=== PATIENT | female | born 1990 | race Caucasian/White ===

== ENCOUNTER 2019-06-05 16:37 | Emergency (ER) | payer BC, SELFPAY ==
[2019-06-05 17:04] VITALS: BP 103/60; PULSE 80; RESP 16; TEMP 36.6; O2SAT 96
--- NOTE | 2019-06-05 17:20 | ED.EYEPROB ---
HPI - Eye Problem General Chief complaint: Eye Problems Stated complaint: Possible [place] [facility] Right Time Seen by Provider: 06/05/19 17:20 Source: patient and family History of Present Illness HPI Narrative: Patient here with itching and drainage to right eye. Patient states her toddler just got over pinkeye and now she thinks she has in her right eye. No vision problems does not wear contacts no injury. Related Data Home Medications Medication Instructions Recorded Confirmed No Home Medications 06/05/19 06/05/19 Allergies Allergy/AdvReac Type Severity Reaction Status Date / Time No Known Allergies Allergy Verified 06/05/19 17:25 Review of Systems Review of Systems: Narrative: CONSTITUTIONAL: Denies fever, chills, or sweats. EYES: Denies visual changes, redness, or discharge. Right eye redness itching ENT: Denies rhinorrhea, congestion, sore throat, or otalgia. CARDIOVASCULAR: Denies chest pain, palpitations, or edema. RESPIRATORY: Denies cough or dyspnea. GASTROINTESTINAL: Denies abdominal pain, nausea, vomiting, or diarrhea. GENITOURINARY: Denies dysuria or hematuria. SKIN: Denies rash or itching. MUSCULOSKELETAL: Denies back pain, joint pain, or myalgia. NEUROLOGIC: Denies headache, numbness, or weakness. PSYCHIATRIC: Denies anxiety or depression. All systems reviewed & are unremarkable except as noted in HPI and below PMFSH Comments At time of signature, agree with nursing past medical, surgical, social and family history. There is no relevant family history pertinent to the presenting complaint Exam Narrative: Exam Narrative: GENERAL: Well-appearing, well-nourished, and in no acute distress. HEAD: Normocephalic, atraumatic. EYES: PERRLA and EOMI. ENT: Nares clear, no rhinorrhea or epistaxis. Mucous membranes moist. Method of inspection: Right eye, viewed pupil: Both eyes, 2 mm, equal, reactivity brisk to direct light, Conjunctiva: Right, with conjunctivitis, not pale, not with subconjunctival hemorrhage, upper and lower eyelids normal. CHEST: Clear to auscultation. No respiratory distress. HEART: Regular rate and rhythm. No murmur heard. Normal peripheral pulses. ABDOMEN: Soft, nontender, nondistended, normal active bowel sounds. EXTREMITIES: Normal range of motion. No edema. SKIN: Warm, dry, no rash. NEURO: No focal deficits. Alert and oriented x3. Sullivan Coma Scale Eye Opening: Spontaneous 4 Eleni Coma Scale Motor: Obeys Commands 6 Eleni Coma Scale Verbal: Oriented 5 Sullivan Coma Scale Total 15 Eyes: Conjunctivae: conjunctival abnormality right Pupils: Equal, round and reactive pupils present Other: Conjunctivitis right Neck: Neck: normal visual inspection Course Vital Signs Vital signs: Vital Signs Temperature 36.6 C 06/05/19 17:04 Pulse Rate 80 06/05/19 17:04 Respiratory Rate 16 06/05/19 17:04 Blood Pressure 103/60 06/05/19 17:04 Pulse Oximetry 96 06/05/19 17:04 Temperature 36.6 C 06/05/19 17:04 Pulse Rate 80 06/05/19 17:04 Respiratory Rate 16 06/05/19 17:04 Blood Pressure 103/60 06/05/19 17:04 Pulse Oximetry 96 06/05/19 17:04 MDM - Eye Problem Differential Diagnosis Differential diagnosis: Likely corneal abrasion, conjunctivitis and subconjunctival hemorrhage Critical Care Time Critical Care Time Critical Care Time: No Discharge Plan Discharge Clinical Impression: Bacterial conjunctivitis Patient Disposition: Home, Self-Care Condition: Stable Instructions: Antibiotic Form Additional Instructions: Conjunctivitis is spread by [id number] contact or by touching a contaminated surface. You can use artificial tears, cold and warm compresses-use, different compress for each eye, and increase hygiene such as hand-washing. Do not wear contacts for 1 week, if applicable. Do not return for 24 hours to daycare, school, workplace for 24 hours after first antibiotic dose. Change bedding. follow up with eye doctor in 24-48 hours -If y
== END 2019-06-05 17:27 | disposition home or self-care (01) ==
PROVIDERS: Emergency Provider Nurse Practitioner Family
DX: H10.9 Unspecified conjunctivitis (principal)
CPT/HCPCS: 99203; G0463

== ENCOUNTER 2022-02-15 14:13 | Emergency (ER) | payer BC, SELFPAY ==
[2022-02-15 14:30] VITALS: BP 106/66; PULSE 89; RESP 16; TEMP 36.8; O2SAT 100
--- NOTE | 2022-02-15 14:37 | ED.URI ---
HPI - URI/Sore Throat General Chief Complaint: Upper Respiratory Infection Stated Complaint: sore throat Time Seen by Provider: 02/15/22 14:37 History of Present Illness HPI Narrative: 32 y/o female presented for c/o sore throat for 3 days. Reports seeing white patches on tonsils today. Also endorses mild post nasal drainage, hoarse voice, mild cough and ear pressure bilaterally. States both daughters had strep throat about 10 days ago. Not taking anything for pain. Related Data Home Medications Medication Instructions Recorded Confirmed No Home Medications 06/05/19 06/05/19 Allergies Allergy/AdvReac Type Severity Reaction Status Date / Time No Known Allergies Allergy Verified 02/15/22 14:29 Review of Systems Review of Systems: CONSTITUTIONAL: Denies body aches, fever, chills, or sweats. EYES: Denies visual changes, redness, or discharge. ENT: per HPI CARDIOVASCULAR: Denies chest pain, palpitations, or edema. RESPIRATORY: Denies dyspnea. GASTROINTESTINAL: Denies abdominal pain, nausea, vomiting, or diarrhea. SKIN: Denies rash, itching, or wounds. MUSCULOSKELETAL: Denies back pain, joint pain, or myalgia. NEUROLOGIC: Denies headache Exam Narrative: GENERAL: well-appearing, no acute distress. EYES: conjunctivae clear ENT: Mucous membranes moist. TMs pearly kelley with normal light reflex bilaterally; no tragal tenderness. Oropharynx erythematous without lesions. Tonsils enlarged 2+ and without exudate. No drooling, no trismus, uvula midline. No tripod positioning, hot potato voice, or soft palate swelling. NECK: Supple. No lymphadenopathy CHEST: Clear to auscultation, breath sounds equal. HEART: Regular rate and rhythm. No murmur heard. SKIN: Warm, dry, no rash. NEURO: Alert and oriented x3. Course Course Emergency Course: Patient is aware of diagnosis, understands and agrees to treatment plan. Anticipatory guidance given. Patient agrees to follow-up as directed and is aware of reasons to seek care at the emergency department. Portions of this record may have been created with voice recognition software Level of Care: Express Care Visit Vital Signs Vital signs: Vital Signs Temperature 98.2 F 02/15/22 14:30 Pulse Rate 89 02/15/22 14:30 Respiratory Rate 16 02/15/22 14:30 Blood Pressure 106/66 02/15/22 14:30 Pulse Oximetry 100 02/15/22 14:30 Oxygen Delivery Room Air 02/15/22 14:30 Temperature 98.2 F 02/15/22 14:30 Pulse Rate 89 02/15/22 14:30 Respiratory Rate 16 02/15/22 14:30 Blood Pressure 106/66 02/15/22 14:30 Pulse Oximetry 100 02/15/22 14:30 Oxygen Delivery Room Air 02/15/22 14:30 MDM - URI/Sore Throat MDM Narrative Medical decision making narrative: Patient requested testing despite known exposure. Neg strep result reviewed with pt. Will culture. Advise supportive treatments. Patient is appropriate for outpatient treatment and follow-up. Differential Diagnosis Differential diagnosis: Likely upper respiratory infection, viral infection and pharyngitis Discharge Plan Discharge Clinical Impression: Pharyngitis, Exposure to group A Streptococcus Patient Disposition: Home, Self-Care Condition: Stable Instructions: Antibiotic Form, Strep Throat (ED) Additional Instructions: Rapid strep swab was negative today You will be notified in a few days if the culture comes back positive for strep, and appropriate antibiotics will be called in at that time. if symptoms are due to a viral illness, it is not treated with antibiotics. Viral symptoms can be present for up to 10-14 days. Tylenol every 8 hours as needed for pain/fever Soft foods, cool liquids, warm tea. Gargle with warm saltwater twice a day. Chloraseptic spray and throat lozenges. Rest and stay hydrated. --Follow up with your PCP if symptoms are not improving, or sooner if symptoms are worsening. Go to the ER immediately if you cannot swallow your saliva, tr
== END 2022-02-15 15:02 | disposition home or self-care (01) ==
PROVIDERS: Emergency Provider Nurse Practitioner Family; PCP Internal Medicine
DX: J02.9 Acute pharyngitis, unspecified (principal)
CPT/HCPCS: 87081; 87880; 99213; G0463

== ENCOUNTER 2023-05-24 14:41 | Emergency (ER) | payer BC, SELFPAY ==
[2023-05-24 14:53] VITALS: BP 143/74; PULSE 100; RESP 18; TEMP 36.6; O2SAT 100
--- NOTE | 2023-05-24 15:07 | ED.WOUNDLAC ---
HPI - Wound/Laceration General Chief Complaint: Wound/Laceration Stated Complaint: Lacetation to Finger Source: patient, RN notes reviewed and old records reviewed Mode of arrival: ambulatory Limitations: no limitations History of Present Illness HPI narrative: 33-year-old female presents to [facility] with complaints of laceration to right 2nd finger. Patient states cut on the insulin last p.m.. Patient states here because she can not get it to quit bleeding. Patient's tetanus up-to-date Related Data Home Medications Medication Instructions Recorded Confirmed No Home Medications 06/05/19 05/24/23 Allergies Allergy/AdvReac Type Severity Reaction Status Date / Time No Known Allergies Allergy Verified 02/15/22 14:29 Review of Systems Constitutional: Constitutional: Reports no additional constitutional complaints, Denies body ache(s), Denies chills, Denies fatigue, Denies fever(s) and Denies headache(s) Eyes: Eyes: Reports no additional eye complaints and Denies blurry vision ENT: Reports system reviewed and no additional complaints, except as documented, Denies vertigo, Denies dizziness, Denies ear discharge, Denies otalgia, Denies facial pain, Denies headache(s), Denies nasal congestion, Denies nasal discharge, Denies sinus pain, Denies sinus pressure and Denies sore throat Cardiovascular: Cardiovascular: Reports no additional cardiovascular complaints, Denies chest pain, Denies chest pain at rest, Denies rapid heart rate and Denies dyspnea Respiratory: Respiratory: Reports no additional respiratory complaints, Denies chest congestion, Denies cough, Denies pain on inspiration, Denies pain with cough and Denies dyspnea Gastrointestinal: Gastrointestinal: Denies abdominal pain, Denies diarrhea, Denies nausea and Denies vomiting Integumentary/Breasts: Skin/Breast: Denies rash Comments: laceration right 2nd finger Neurologic: Reports system reviewed and no additional complaints, except as documented, Denies vertigo, Denies dizziness and Denies headache(s) Endocrine: Endocrine: Denies fatigue PMFSH Comments At the time of my signature, I reviewed and agree with the nursing past medical, surgical, social, and family history. There is no relevant family history pertinent to the patient complaint. Exam Const: General: cooperative, healthy appearing, no acute distress and well nourished Nutritional Appearance: well nourished Orientation/consciousness: patient oriented x3 Limitations: no limitations HENMT: Head: normal to inspection and normocephalic Ears: external ears normal, TM's normal bilaterally, mastoids normal and Abnormal EAC present Face/Nose/Sinus: normal facial exam Face and sinus: normal facial exam Mouth: Yes Normal oral and palatal mucosa present, Yes oropharynx normal and Yes moist mucous membranes Throat: tonsils normal, uvula midline and no uvular edema Eyes: General: appearance normal, both eyes and all related structures Sclera: sclerae normal Pupils: Equal, round and reactive pupils present Resp: Effort & Inspection: normal respiratory effort, able to speak in complete sentences, no audible wheezes, no cough, no respiratory distress and no retractions Skin: General skin exam: normal color and no rashes or lesions noted Wounds: wounds noted ( 1 cm avulsion to tip of right 2nd finger slight bleeding noted) Neuro: General: patient oriented x3 Cranial nerves: Yes Equal, round and reactive pupils present Psych: Appearance: grossly normal Mental Status: mental status grossly normal Speech and movement: Normal speech and movement present Affect: normal affect Course Course Emergency Course: Patient is aware of diagnosis, understands and agrees to treatment plan.? Anticipatory guidance given.? Patient agrees to follow-up as directed and is aware of reasons to seek care at the emergency department. Some parts of this dictation were generated by voice recognition software and nikole fanai
== END 2023-05-24 15:12 | disposition home or self-care (01) ==
PROVIDERS: Emergency Provider Registered Nurse; PCP Emergency Medicine
DX: S61.200A Unspecified open wound of right index finger without damage to nail, initial encounter (principal); W45.8XXA Other foreign body or object entering through skin, initial encounter
CPT/HCPCS: 99212; G0463

== ENCOUNTER 2024-08-01 12:53 | Emergency (ER) | payer BC, SELFPAY ==
--- OUTSIDE RECORDS SUMMARY | 2024-08-01 12:56 | XMS_ITS | Clinical Summary ---
Author Organization [facility] Address [address] [place] [address] Care Team Providers Care President [employer] Name Role Phone Andrew Huang MD Primary Care Provi penny Source Comments [facility],non-owned Affiliates and Associated Physician Practices is amultiple site organization consisting of ambulatory clinics and hospital sitesin [place], [place], [place] and [place]. This disclosure is being madepursuant to the Care Everywhere program and may not contain all information available regarding this patient. Last updated [facility] Allergies No known active allergies Medications * Be aware that medications may not be up to date on this document. Alwaysverify current medications with the patient. No known medications Social History Tobacco Use Types Packs/Day Years Used Date Smoking Tobacco: Never Smokeless Tobacco: Never Tobacco Cessation:Counseling Given: Yes Comments No Sex and Gender Information Value Date Recorded Sex Assigned at Not on file Legal Sex Female 10:02 AM CDT Gender Identity Not on file Sexual Orientation Not on file Last Filed Vital Signs Vital Sign Reading Time Taken Comments Blood Pressure 114/68 08/07/2018 11:27 AM CDT Pulse 96 08/07/2018 11:27 AM CDT Temperature 36.5 C (97.7 F) 08/07/2018 11:27 AM CDT Respiratory Rate 16 08/07/2018 11:27 AM CDT Oxygen Saturation 96% 08/07/2018 11:27 AM CDT Inhaled Oxygen Concentration - - Weight 72.6 kg (160 lb) 08/07/2018 11:27 AM CDT Height 172.7 cm (5' 8 ) 08/07/2018 11:27 AM CDT Body Mass Index 24.33 08/07/2018 11:27 AM CDT Plan of Treatment Health Maintenance Due Date Last Done Comments HIV SCREENING 01/21/2003 HEPATITIS C SCREENING 01/17/2006 DTAP/TDAP/TD VACCINES (1 - Tdap) 01/21/2007 HEPATITIS B VACCINE (1 of 3 - 19+ 3-dose series) 01/21/2007 COVID-19 VACCINE (1 - 2023-2 5 season) 2023 DEPRESSION SCREENING 04/07/2024 INFLUENZA VACCINE (Season Ended) 2024 01/31/20 18 ZOSTER VACCINE (1 of 2) 01/21/2038 HIB VACCINE Aged Out No longer eligi ble based on patient's age to complete this topic HPV VACCINE Aged Out No longer eligi ble based on patient's age to complete this topic MENINGOCOCCAL (Group B) VACC INE SHARED DECISION-MAKING Aged Out No longer eligibl e based on patient's age to complete this topic MENINGOCOCCAL GROUPS A/C/Y/W VACCINE Aged Out No longer eligible b ased on patient's age to complete this topic PNEUMOCOCCAL VACCINE Aged Out No long er eligible based on patient's age to complete this topic Insurance ANTHEM Care Teams President [employer] Relationship Specialty Start Date End Date Andrew Huang MD PCP - General Internal Medicine 08/07/18
--- OUTSIDE RECORDS SUMMARY | 2024-08-01 12:56 | XMS_ITS | Encounter Summary ---
Author Organization [facility] Address [address] [place] [address] Care Team Providers Care Radio Time Buyer Name Role Phone Susie Padilla MD Primary Care Provid er Encounter Details Date Type Department Care Team (Latest Contact Info) Description 08/01/2008 Outpatient Historical HIS CARDIOPULMONARY Elmer Morgan MD NO ADDRESS ON FILE Dizziness and Giddiness Social History Tobacco Use Types Packs/Day Years Used Date Smoking Tobacco: Never Assessed Comments No Sex and Gender Information Value Date Recorded Sex Assigned at Not on file Legal Sex Female 5:42 AM PATIENT PARTNER Gender Identity Not on file Sexual Orientation Not on file documented as of this encounter Plan of Treatment Not on file documented as of this encounter Visit Diagnoses Diagnosis Dizziness and giddiness documented in this encounter Care Teams Radio Time Buyer Relationship Specialty Start Date End Date Susie Padilla MD PCP - General Internal Medicine 11/15/14 05/26/18 documented as of this encounter
--- OUTSIDE RECORDS SUMMARY | 2024-08-01 12:56 | XMS_ITS | Referral Summary ---
Author Organization [facility] Building A Address [address] [place] [address] Care Team Providers Care Warehouse Laborer Name Role Phone Sharifa Duran MD Unavailable Andrez Restrepo Primary Care Provider Allergies No known active allergies Medications PNV no.95/ferrous fum/folic ac ( MULTIVITAMINS ORAL) 1 tablet(s), Oral, qhs, 30 tablet(s), Tablet(s), 0 06/30/2017 Active loratadine (CLARITIN) 10 mg tablet Take 10 mg by mouth daily Active Active Problems Problem Noted Date Diagnosed Date History of delivery 05/15/2022 Reactive hypoglycemia 12/16/2019 Assessment & Plan (12/16/2019 3:35 PM CDT): Aware of and treats with juice and Pointed out that it is meant to look as to what caused it. BMI 30.0-30.9,adult 12/16/2019 Assessment & Plan (12/16/2019 3:36 PM CDT): Recognizes 30 lbs to lose and feels with dol. Fibromyalgia 08/21/2013 Overview (12/30/2018): Fibromyalgia Assessment & Plan (12/16/2019 3:36 PM CDT): Not enough Need to treat an dfinds workouts help the most Assessment & Plan (11/02/2018 10:00 AM CDT): Working out. smiwwing exp good to help occasional tyleono andwhen not preg advil on and off rarely. Resolved Problems Problem Noted Date Diagnosed Date Resolved Date Request for sterilization 04/25/2022 Supervision of normal 12/19/2021 07/03/2022 Herpes zoster without complication 04/26/2019 12/16/2019 Assessment & Plan (04/26/2019 12:05 PM MECHANIST): r buttock buttock isolated patch 15 lesion shinglesin one of two areas that are not spreading to the rest of bodoy c=toaled with park worker supervisor/ob and treats with valtrex all time and leans to treating as opposed to not valtrex 100 tid for 7 sdays. Keep covered and fluid the source of viral tranamission. Hand washing and see' park worker supervisor/ob next week and can followup with her Hangnail, right 04/26/2019 05/19/2019 Assessment & Plan (04/26/2019 12:08 PM MECHANIST): Min and toical antibiotic creatm with cotton to hold to area Encounter for ultrasound to assess anatomy and growth in twin , antepartum 01/29/2019 01/29/2019 Screening, , for fe serene anatomic survey 01/29/2019 05/19/2019 PE (physical exam), annual 01/29/2019 0 11/21/2021 Assessment & Plan (12/16/2019 3:40 PM CDT): Well exam healthy female ask for Piror screening labs to add to chart see's park worker supervisor and Keep up with . No preg problems. No shgar or bp. Get old labs for screen and get ua on return in feb P.e. fall flu shot. Supervision of other normal , antepartum 12/30/2018 06/10/2019 BMI 24.0-24.9, adult 11/02/2018 020 Assessment & Plan (11/02/2018 10:01 AM CDT): Work to keep wt stable Vasovagal syncope 06/30/2008 12/30/2018 Immunizations Immunization Administration Dates Next Due Influenza, Unspecified 05/02/2021(Deferr ed: Patient Refused),12/16/2019(Deferred: Patient Refused),03/21/2019,01/30/2018 Tdap 04/04/2022,03/24/2019 Social History Tobacco Use Types Packs/Day Years Used Date Smoking Tobacco: Never Smokeless Tobacco: Never Tobacco Cessation:Counseling Given: Not Answered Alcohol Use Standard Drinks/Week Comments Yes 2 (1 standard drink = 0.6 oz pur e alcohol) Occasional PHQ-2 Answer Date Recorded PHQ-2 Total Score (If total score is 3 or more points, staff should administer the PHQ-9) 0 06/27/2021 [facility] - Occupational Stress Questionnaire Answer Date Recorded Do you feel stress - tense, restless, nervous, or anxious, or unable to sleep at night because your mind is troubled all the time - these days? Not at all 12/16/2019 Exercise Vital Sign Answer Date Recorde d On average, how many days pe r week do you engage in moderate to strenuous exercise (like a brisk walk)? 0 days 12/16/2019 On average, how many minutes do you engage in exercise at this level? 0 min 12/16/2019 [place] Depression Scale Answer Date Recorded [place] Depression Scale Total 1 06/26/2022 The thought of harming myself has occurred to me . 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 Not on file Not on fi le Not on file Last Filed Vital Signs Vital Sign Reading Time Taken Comments Blood Pressure 110/78 07/03/2022 9:13 AM CDT Pulse 99 06/18/2021 3:52 PM CDT Temperature 36.8 C (98.2 F) 06/18/2021 3:52 PM CDT Respiratory Rate 18 06/18/2021 3:52 PM CDT Oxygen Saturation 96% 06/18/2021 3:52 PM CDT Inhaled Oxygen Concentration - - Weight 90.3 kg (199 lb) 07/03/2022 9:13 AM CDT Height 172.7 cm (5' 8 ) 07/03/2022 9:13 AM CDT Body Mass Index 30.26 07/03/2022 9:13 AM CDT Plan of Treatment Not on file Procedures Procedure Name Priority Date/Time Associated Diagnosis Comments HEPATITIS C ANTIBODY Routine 12/19/2021 3:13 PM CDT Encounter for supervision of other normal in second trimester PAP AND HIGH RISK HPV, REFLEX TO GENOTYPING Routine 05/03/2020 10:29 AM MECHANIST Well woman exam Routine Papanicolaou smear Screening for human papillomavirus (HPV) from Last 3 Months or Most Recently Relevant to Health Maintenance Results * Hepatitis C antibody (12/19/2021 3:13 PM CDT) Hep C Ab Nonreactive Nonreactive KARLIE WOOTEN Comment: Interpretive Data Nonreactive: Antibodies to HCV not detected. Does NOT exclude the possibility of recent exposure to HCV. Equivocal: Equivocal for HCV antibodies. Supplemental molecular testing will be automatically performed to determine infection status in accordance with current CDC screening recommendations. Reactive: Positive for HCV antibodies. This may represent current or past HCV infection. Supplemental molecular testing will be automatically performed to determine current infection status in accordance with current CDC screening recommendations. Interpretive data was last revised on 2019. Blood 12/19/2021 3:13 PM CDT 12/19/2021 3:13 PM CDT us Sharifa Duran MD LAB MICROBIOL OGY - GENERAL ORDERABLES Edited Result - Final KARLIE [facility] [address] [place] [address] * Pap and High Risk HPV, reflex to Genotyping (05/03/2020 10:29 AM MECHANIST) Swab 05/03/2020 10:2 9 AM MECHANIST 05/04/2020 2:28 PM MECHANIST Narrative PATHOLOGY [facility] - 05/09/2020 3:43 PM MECHANIST [facility] results best viewed via link to PDF [id number] [place] [employer], [place] [address] Tele: Marga Valentine MD - Agricultural Equipment Operator CYTOLOGY REPORT Patient Name: GWENDOLYN REYES Address: [address] [id number] Gender: F : 1990 (Age: 30) Service: Laboratory Location: Lab Hospital #: [id number] Patient Type: [facility] Lab Taken: 05/03/2020 Reported: 05/09/2020 Physician(s): Sharifa Duran M.D. FINAL DIAGNOSIS: Specimen Type: - ThinPrep Pap and HPV w/ reflex Genotyping Statement of Specimen Adequacy: Source: Cervical/Endocervical - Satisfactory for interpretation - Endocervical /Transformation Zone component present - Case screened using computer assisted imaging technology General Categorization: - Negative for intraepithelial lesion or malignancy Interpretation: - Acute Inflammation alld/05/09/2020 15:43 Odalis Haider Report Reviewed and Electronically Signed By Odalis Haider Clerical Data Follow A; [id number] DIAGNOSIS COMMENT: HPV High Risk Group (16, 18, 31, 33, 35, 39, 45, 51, 52, 56, 58, 59, 66 and 68) - Not Detected Reference Range: Not Detected This test was performed using the EDMUND 4800 CLINICAL DIAGNOSIS AND HISTORY Last Menstrual Period: 04/19/20 REPORT IMAGES AND/OR SCANNED DOCUMENTS ONLY VIEWABLE IN PDF FORMAT The Pap test is a screening test used to aid in the detection of cervical cancer and its precursors. It should not be the sole means by which malignant and premalignant lesions are diagnosed. Both false negative and false positive results may occur. It also has poor sensitivity for the detection of endometrial lesions and should not be used to evaluate suspected endometrial abnormalities. For these reasons it is most important to obtain Pap tests at regular intervals, as recommended by your physician or nurse practitioner. Sharifa Duran MD LAB CYTOLOGY ORDERABL ES Final Result PATHOLOGY [facility] Laboratory Receiving [address] [place] [address] from Last 3 Months or Most Recently Relevant to Health Maintenance Insurance [employer] ACCESS CHOICE ANTHEM ACCESS CHOICE ANTHEM ACCESS CHOICE [facility] Address: [place] [address] Advance Directives For more information, please contact: [phone] * Full Code (Latest Code Status on File) Date Activated Date Inactivated Comments 05/24/2019 11:31 PM 05/28/2019 3:46 PM * Full Code Date Activated Date Inactivated Comments 05/24/2019 1:56 PM 05/24/2019 11:31 PM Full CPR in case of cardiopulmonary arrest * Full Code Date Activated Date Inactivated Comments 05/19/2019 5:58 PM 05/23/2019 2:30 PM Full CPR in case of cardiopulmonary arrest Care Teams Warehouse Laborer Relationship Specialty Start Date End Date Andrez Restrepo PA [address] [place] [id number] PCP - General Internal Medicine 12/06/21 Sharifa Duran MD [address] [facility] [address], [place] [address] Consulting Physician Obstetrics and Gynecology 05/25/19
--- OUTSIDE RECORDS SUMMARY | 2024-08-01 12:56 | XMS_ITS | Encounter Summary ---
Author Organization [facility] Address [address] [place] [address] Care Team Providers Care Bench Assembler Electrical Name Role Phone Susie Padilla MD Primary Care Provid er Encounter Details Date Type Department Care Team (Latest Contact Info) Description 06/30/2008 Outpatient Historical [facility]ARDI[facility]ULMONARY Elmer Morgan MD NO ADDRESS ON FILE Dizziness and Giddiness Social History Tobacco Use Types Packs/Day Years Used Date Smoking Tobacco: Never Assessed Comments No Sex and Gender Information Value Date Recorded Sex Assigned at Not on file Legal Sex Female 5:42 AM POLICE LIAISON Gender Identity Not on file Sexual Orientation Not on file documented as of this encounter Plan of Treatment Not on file documented as of this encounter Visit Diagnoses Diagnosis Dizziness and giddiness documented in this encounter Care Teams Bench Assembler Electrical Relationship Specialty Start Date End Date Susie Padilla MD PCP - General Internal Medicine 11/15/14 05/26/18 documented as of this encounter
--- OUTSIDE RECORDS SUMMARY | 2024-08-01 12:56 | XMS_ITS | Clinical Summary ---
Author Organization [facility] Address [address] [place] [address] Phone Care Team Providers Care Sap Abap Programmer Name Role Phone Unavailable Primary Care Provider Unavailabl e Allergies No known active allergies Medications hydrocortisone (CORTAID) 1 % CreamIndication s:Rash Apply to affected area 2 times daily. 30 Gram 11/05/2016 Active Active Problems Problem Noted Date Diagnosed Date Rash 11/05/2016 Dysuria 04/16/2016 Fibromyalgia 11/15/2014 Vasovagal syncope 06/30/2008 Family History Medical History Relation Name Comments Unknown Father Hypertension Maternal Grandfather Stroke Maternal Grandfather Thyroid Disease Maternal Grandfather goit er Hypertension Maternal Grandmother Seizures Maternal Grandmother Unknown Mother Diabetes Other MGaunt Breast Cancer Neg Hx Colon Cancer Neg Hx Relation Name Status Comments Father Maternal Grandfather Maternal Grandmother Mother Other Other MGaunt Alive Social History Tobacco Use Types Packs/Day Years Used Date Smoking Tobacco: Never Smokeless Tobacco: Never Alcohol Use Standard Drinks/Week Comments Yes 1 (1 standard drink = 0.6 oz pur e alcohol) weekly Comments No Sex and Gender Information Value Date Recorded Sex Assigned at Not on file Legal Sex Female 5:42 AM PHOTO MACHINE OPERATOR Gender Identity Not on file Sexual Orientation Not on file Last Filed Vital Signs Vital Sign Reading Time Taken Comments Blood Pressure 110/62 09/17/2016 8:55 AM CDT Pulse 68 09/17/2016 8:55 AM CDT Temperature 36.8 C (98.3 F) 09/17/2016 8:55 AM CDT Respiratory Rate 16 06/30/2008 12:24 PM CDT Oxygen Saturation 99% 09/17/2016 8:55 AM CDT Inhaled Oxygen Concentration - - Weight 65.8 kg (145 lb) 09/17/2016 8:55 AM CDT Height 172.7 cm (5' 8 ) 09/17/2016 8:55 AM CDT Body Mass Index 22.05 09/17/2016 8:55 AM CDT Plan of Treatment Health Maintenance Due Date Last Done Comments DTAP/TDAP/TD VACCINES (1 - Tdap) 01/21/2007 HEPATITIS B VACCINES (1 of 3 - 19+ 3-dose series) 01/21/2007 HPV/Cotest (21-29) 01/21/2009 CERVICAL CANCER SCREENING 01/21/2018 HPV/Cotest (30-65) 01/21/2018 PAP SMEAR 01/21/2018 INFLUENZA VACCINE (#1) 2023 HPV VACCINES Aged Out No longer eligi ble based on patient's age to complete this topic Insurance [employer] PPO [id number]
--- OUTSIDE RECORDS SUMMARY | 2024-08-01 12:56 | XMS_ITS | Continuity of Care Document ---
Author Organization [facility] Address [address] [place] [address] [place] [address] Phone Care Team Providers Care Applications Architect Name Role Phone Yonis Landers MD Unavailable Unavailable Allergies, Adverse Reactions, Alerts Substance Reaction Status Criticality No Known Allergies Active No Inform ation Procedures Procedure Date PREV VISIT, EST, AGE 18-39 PREV VISIT, NEW, AGE 18-39 OFFICE/OUTPATIENT VISIT, [facility] Advance Directives Directive Yes / No Effective Date File Name No Information Encounters Encounter Description Practice Location Reason(s) For Visit Diagnoses Date Provider Providers Copied on Encounter PREV VISIT, EST, AGE 18-39 [facility], [place], [address] [place], [id number], [place] tel:[phone] [facility], [place] physical (chief complaint) Encounter for general adult medical examination without abnormal findings [address] Anshul Somers. [address] [place], [place], [id number] , [place]. tel:[phone] PREV VISIT, NEW, AGE 18-39 [facility], [place], [address], [place], [place], [id number], [place] tel:[phone] [facility], [place] physical (chief complaint) Encounter for general adult medical exam w abnormal findingsFibromyalgi a 3 Anshul Somers. [address], [place], [place], [id number] , [place]. tel:[phone] Family History Family Member Type Diagnosis Age At Onset Mother Problem unknown Maternal grandfather Problem High cholesterol Maternal grandmother Problem High cholesterol Maternal grandfather Problem Hypertension Maternal grandmother Problem Hypertension Father Problem unknown Payers Payer name Insurance type Covered constitution party ID Authorsuzi prabhakar(s) No Information Social History Type Description Quantity Date Captured Comments Alcohol Use Details No Caffeine Use Details Unknown Tobacco Use Status Current non-smoker Smoking Status Never smoker Sex Female Vital Signs Date / Time: Height Weight BMI Pulse Rate Blood Pressure Temperature Respiratory Rate Body Surface Area Head Circumference BMI percentile Pulse Ox Inhaled Ox 9:52 AM 68.00 in 201.80 lbs 30.6 8 kg/m eter (2) 76 /min 105/65 mm[Hg] 97.3 F 16 /min Chief Complaint And Reason For Visit From encounter dated '10/01/2023 09:43'. physical (chief complaint). Description: Pt needs annual physical pt has history of mild fibromyalgia but her symptoms are not bad and she takes OTC meds occasionally. Pt has some occasional leg and arm and upper back spasm and pain Pt denies any paresthesia Pt had thorough work up for above in thepast and was told that she has fibromyalgia, Pt denies any flare up of symptoms Pt denies any jointpain Pt denies any anxiety or depression. Pt overall feels better. Pt denies any other complaints. Plan Of Treatment Date Type Action Status No Information History Of Present Illness Encounter Date Complaint History Of Prese nt Illness physical Pt needs annual physical pt has history of mild fibromyalgia but her symptoms are not bad and she takes OTC meds occasionally. Pt has some occasional leg and arm and upper back spasm and pain Pt denies any paresthesia Pt had thorough work up for above in the past and was told that she has fibromyalgia, Pt denies any flare up of symptoms Pt denies any joint pain Pt denies any anxiety or depression. Pt overall feels better. Pt denies any other complaints. physical Pt needs annual physical pt has history of mild fibromyalgia but her symptoms are not bad and she takes OTC meds occasionally. Pt has some occasional leg and arm and upper back spasm and pain Pt denies any paresthesia Pt had thorough work up for above in the past and was told that she has fibromyalgia, Pt denies any flare up of symptoms Pt denies any joint pain Pt denies any anxiety or depression. Pt overall feels better. Pt denies any other complaints. Instructions Date Instruction Additional Infor larry No Information Assessments Type Assessment Date assessment Encounter for genera l adult medical examination without abnormal findings Mental Status Date Cognitive Assessment Orientation - Gill ed to time, place, person, situation.
--- OUTSIDE RECORDS SUMMARY | 2024-08-01 12:56 | XMS_ITS | Clinical Summary ---
Author Organization [facility] A Address [address] [place] [address] Care Team Providers Care Joint Creaser Name Role Phone Sharifa Duran MD Unavailable [...] 12/16/2019 Assessment & Plan (04/26/2019 12:05 PM DIRECTOR OF PROVIDER RELATIONS): r buttock buttock isolated patch 15 lesion shinglesin one of two areas that are not spreading to the rest of bodoy c=toaled with emergency dispatcher/ob and treats with valtrex all time and leans to treating as opposed to not valtrex 100 tid for 7 sdays. Keep covered and fluid the source of viral tranamission. Hand washing and see' emergency dispatcher/ob next week and can followup with her Hangnail, right 04/26/2019 05/19/2019 Assessment & Plan (04/26/2019 12:08 PM DIRECTOR OF PROVIDER RELATIONS): Min and toical antibiotic creatm with cotton to hold to area Encounter for ultrasound to assess anatomy and growth in twin , antepartum 01/29/2019 01/29/2019 Screening, , for fe serene anatomic survey 01/29/2019 05/19/2019 PE (physical exam), annual 01/29/2019 0 11/21/2021 Assessment & Plan (12/16/2019 3:40 PM CDT): Well exam healthy female ask for Piror screening labs to add to chart see's emergency dispatcher and Keep up with . No preg [...] ed: Patient Refused),12/16/2019(Deferred: Patient Refused),03/21/2019,01/30/2018 Tdap 04/04/2022,03/24/2019 Surgical History Surgery Date Site/Laterality Comments WISDOM TOOTH EXTRACTION 04/07/1997 - 04/06/1998 SECTION 05/24/2019 REPEAT SECTION 05/31/2022 with bilateral salpingectomy Medical History Medical History Date Comments Vasovagal syncope 06/30/2008 Family History Medical History Relation Name Comments No Known Problems Father Hypertension Maternal Grandfather Guillermo Stroke Maternal Grandfather Guillermo No Known Problems Mother Breast cancer Neg Hx Cervical cancer Neg Hx Colon cancer Neg Hx Ovarian cancer Neg Hx Uterine cancer Neg Hx Relation Name Status Comments Father Alive Maternal Grandfather Guillermo Mother Alive Social History Tobacco Use Types Packs/Day Years Used Date Smoking Tobacco: Never Smokeless Tobacco: Never Tobacco Cessation:Counseling Given: Not Answered Alcohol Use Standard Drinks/Week Comments Yes 2 (1 standard drink = 0.6 oz pur e alcohol) Occasional PHQ-2 Answer Date Recorded PHQ-2 Total Score (If total score is 3 or more points, staff should administer the PHQ-9) 0 06/27/2021 [facility] - Occupational Stress [...] exercise at this level? 0 min 12/16/2019 [place] Depression Scale Answer Date Recorded [place] Depression Scale Total 1 06/26/2022 The thought of harming myself has occurred to me . 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 file Not on fi le Not on file Obstetrics History Para Term AB IAB SAB Ectopic Multiple Livin g Live Births 3 3 2 1 0 3 3 Date Outcome GA Total Labor Labor/2nd/3rd Weight Sex Type Anes PTL Masha A1 A5 Name Clin 2017 Term 40w 2d 3.685 kg (8 lb 2 oz) F Vag-V acuum Epidur al Livin g Complications:Broken clavicl e 2019 35w 6d 0h 01m 0h 01m 2.41 kg (5 lb 5 oz) F CS-LT ranv Spinal N Livin g 8 9 GONZALO WOLFE ATE [place] tavarez, Sharifa serrato MD Complications:Abruptio Place nta Delivery Location:This [facility] ([facility] PROCEDURE) Comments:Abruption 2022 Term 38w 2d F C-Sec tion Livin g [place] her Delivery Location:Other Last Filed Vital Signs Vital Sign Reading [...] 07/03/2022 9:13 AM CDT Plan of Treatment Health Maintenance Due Date Last Done Comments Varicella Vaccines (1 of 2 - 13+ 2-dose series) 01/21/2001 Hepatitis B Screening 01/21/2006 Cervical Cancer Screening 05/03/2021 05/03/2020, 04/2016 Regular Well Visit/Exam 18-64 06/27/2022 06/27/2021, 05/02/2021, 05/03/2020, Additional history exists Depression Screening 06/27/2023 06/26/2022, 06/27/2021, 05/02/2021, Additional history exists Influenza Vaccine (Season Ended) 2024 03/21/2019, 01/30/2018 DTaP/Tdap/Td Vaccine (3 - Td or Tdap) 04/04/2032 04/04/2022, 03/24/2019 Hepatitis C Screening Completed 12/19/2021 HPV Vaccines Aged Out No longer eligi ble based on patient's age to complete this topic Pneumococcal vaccine <65 Aged Out No longer eligible based on patient's age to complete this topic Procedures Procedure Name Priority Date/Time Associated Diagnosis Comments HEPATITIS C ANTIBODY Routine 12/19/2021 3:13 PM CDT Encounter for supervision of other normal in second trimester PAP AND HIGH RISK HPV, REFLEX TO GENOTYPING Routine 05/03/2020 10:29 AM DIRECTOR OF PROVIDER RELATIONS Well woman exam Routine Papanicolaou smear Screening for human papillomavirus (HPV) from Last 3 Months or Most Recently Relevant to Health Maintenance Results * Hepatitis C antibody (12/19/2021 3:13 PM CDT) Hep C Ab Nonreactive Nonreactive KARLIE [facility] Comment: Interpretive Data Nonreactive: Antibodies to HCV [...] 3:13 PM CDT 12/19/2021 3:13 PM CDT Sharifa Duran MD LAB MICROBIOL OGY - GENERAL ORDERABLES Edited Result - Final [facility] [address] Department of [employer] [place], [place] [id number] * Pap and High Risk HPV, reflex to Genotyping (05/03/2020 10:29 AM DIRECTOR OF PROVIDER RELATIONS) Swab 05/03/2020 10:2 9 AM DIRECTOR OF PROVIDER RELATIONS 05/04/2020 2:28 PM DIRECTOR OF PROVIDER RELATIONS Narrative PATHOLOGY [facility] - 05/09/2020 3:43 PM DIRECTOR OF PROVIDER RELATIONS EPIC results best viewed via link to PDF [address] [address] Tele: Marga Valentine MD - Rotary Drum Dyer CYTOLOGY REPORT Patient Name: AMBER REYES Address: [address] [place] [address] Gender: F : 1990 (Age: 30) Service: Laboratory Location: Lab Hospital #: [id number] Patient Type: [facility] Lab Taken: 05/03/2020 Reported: 05/09/2020 Physician(s): Sharifa [...] LAB CYTOLOGY ORDERABL ES Final Result PATHOLOGY [facility] Laboratory Receiving [address] [place] [address] from Last 3 Months or Most Recently Relevant to Health Maintenance Insurance [employer] ANTH ACCESS CHOICE Advance Directives For more information, please contact: [phone] * Full Code (Latest Code Status on File) Date Activated Date Inactivated Comments 05/24/2019 11:31 PM 05/28/2019 3:46 PM * Full Code Date Activated Date Inactivated Comments 05/24/2019 1:56 PM 05/24/2019 11:31 PM Full CPR in case of cardiopulmonary arrest * Full Code Date Activated Date Inactivated Comments 05/19/2019 5:58 PM 05/23/2019 2:30 PM Full CPR in case of cardiopulmonary arrest Care Teams Joint Creaser Relationship Specialty Start Date End Date Andrez Restrepo PA [address] [place] [id number] PCP - General Internal Medicine 12/06/21 Sharifa Duran MD [address] [place] [address] Consulting Physician Obstetrics and Gynecology 05/25/19
--- OUTSIDE RECORDS SUMMARY | 2024-08-01 12:57 | XMS_ITS | Continuity of Care Document ---
Author Organization [facility] Address [address] [place] [address] [place] [address] Phone Care Team Providers Care Campus Director Name Role Phone Yonis Landers MD Unavailable Unavailable Allergies, Adverse Reactions, Alerts Substance Reaction Status Criticality No Known Allergies Active No Inform ation Procedures Procedure Date PREV VISIT, EST, AGE 18-39 PREV VISIT, NEW, AGE 18-39 OFFICE/OUTPATIENT VISIT, [facility] Advance Directives Directive Yes / No Effective Date File Name No Information Encounters Encounter Description Practice Location Reason(s) For Visit Diagnoses Date Provider Providers Copied on Encounter PREV VISIT, EST, AGE 18-39 [facility], [place], [address] [place], [id number], [place] tel:[phone] [facility] [place] physical (chief complaint) Encounter for general adult medical examination without abnormal findings 4 [address] Somers. [address], [place], [id number] , [place]. tel:[phone] PREV VISIT, NEW, AGE 18-39 [facility], [place], [address], [place], [place], [address], [place] tel:[phone] [facility], [place] physical (chief complaint) Encounter for general adult medical exam w abnormal findingsFibromyalgi a [address]. [address], [address], [place], [place], [address] , [place]. tel:[phone] Family History Family Member Type Diagnosis Age At Onset Mother Problem unknown Maternal grandfather Problem High cholesterol Maternal grandmother Problem High cholesterol Maternal grandfather Problem Hypertension Maternal grandmother Problem Hypertension Father Problem unknown Payers Payer name Insurance type Covered libertarian ID Authorsuzi prabhakar(s) No Information Social History [...] Mental Status Date Cognitive Assessment Orientation - [place] ed to time, place, person, situation.
[2024-08-01 13:04] VITALS: BP 115/60; PULSE 80; RESP 16; TEMP 36.6; O2SAT 100
[2024-08-01 13:15] LABS: EDSTREPNEGPOS1 Positive (Negative)
--- NOTE | 2024-08-01 13:26 | ED_ITS ---
HPI - General Adult General Chief complaint: Upper Respiratory Infection Stated complaint: Sore Throat Source: patient Mode of arrival: ambulatory Limitations: no limitations History of Present Illness HPI narrative: Pt presents for evaluation of sore throat. Symptom onset yesterday. No fever, chills, nausea, vomiting, diarrhea, cough or SOB. Her kids have been sick this week with various symptoms. She does not smoke. Related Data Allergies Allergy/AdvReac Type Severity Reaction Status Date / Time No Known Allergies Allergy Verified 08/01/24 13:03 Review of Systems Review of Systems: CONSTITUTIONAL: Denies fever, chills, or sweats. EYES: Denies visual changes, redness, or discharge. ENT: Reports sore throat. Denies rhinorrhea, congestion, or otalgia. CARDIOVASCULAR: Denies chest pain, palpitations, or edema. RESPIRATORY: Denies cough or dyspnea. GASTROINTESTINAL: Denies abdominal pain, nausea, vomiting, or diarrhea. GENITOURINARY: Denies dysuria or hematuria. SKIN: Denies rash or itching. MUSCULOSKELETAL: Denies back pain, joint pain, or myalgia. NEUROLOGIC: Denies headache, numbness, dizziness, or weakness. PSYCHIATRIC: Denies anxiety or depression. PMFSH Past Medical History Medical History No pertinent past medical history Surgical History Surgical History No pertinent past surgical history Family History Family History Mother Family history non-contributory Social History Social History Smoking status: Never smoker Living arrangements: with family Gender identity (if verbalized by the patient): Female Spiritual care concerns: No Exam Narrative: GENERAL: Well-appearing, well-nourished, and in no acute distress. HEAD: Normocephalic, atraumatic. EYES: PERRLA and EOMI. ENT: Nares clear, no rhinorrhea or epistaxis. Mucous membranes moist. Posterior pharyngeal erythema present. Oropharynx without tonsillar hypertrophy exudate or other lesions. Bilateral TMs pearly kelley nonbulging NECK: Supple. No adenopathy or masses. No carotid bruits or JVD CHEST: Clear to auscultation. No respiratory distress. No wheezes rales or rhonchi HEART: Regular rate and rhythm. No murmur heard. Normal peripheral pulses. ABDOMEN: Soft, nontender, nondistended, normal active bowel sounds. EXTREMITIES: Normal range of motion. No edema. SKIN: Warm, dry, no rash. NEURO: No focal deficits. Alert and oriented x3. PSYCH: Normal mood and affect. Course Course Emergency Course: This is a 34-year-old female who presented for evaluation of sore throat. Rapid strep positive. Will treat with amoxicillin. Increase hydration. Gdfm-[id number] agents for symptom management. Follow up with primary provider. Go to the ER for worsening symptoms. Patient in agreement with plan care. Level of Care: Express Care Visit Vital Signs Vital signs: Vital Signs Temperature 36.6 C 08/01/24 13:04 Pulse Rate 80 08/01/24 13:04 Respiratory Rate 16 08/01/24 13:04 Blood Pressure 115/60 08/01/24 13:04 Pulse Oximetry 100 08/01/24 13:04 Oxygen Delivery Room Air 08/01/24 13:04 Temperature 36.6 C 08/01/24 13:04 Pulse Rate 80 08/01/24 13:04 Respiratory Rate 16 08/01/24 13:04 Blood Pressure 115/60 08/01/24 13:04 Pulse Oximetry 100 08/01/24 13:04 Oxygen Delivery Room Air 08/01/24 13:04 Medical Decision Making Vital Signs Vital Signs: Vital Signs Temperature 36.6 C 08/01/24 13:04 Pulse Rate 80 08/01/24 13:04 Respiratory Rate 16 08/01/24 13:04 Blood Pressure 115/60 08/01/24 13:04 Pulse Oximetry 100 08/01/24 13:04 Oxygen Delivery Room Air 08/01/24 13:04 Temperature 36.6 C 08/01/24 13:04 Pulse Rate 80 08/01/24 13:04 Respiratory Rate 16 08/01/24 13:04 Blood Pressure 115/60 08/01/24 13:04 Pulse Oximetry 100 08/01/24 13:04 Oxygen Delivery Room Air 08/01/24 13:04 Lab Data Labs: Lab Results 08/01/24 Range/Units 13:13 POC Grp A Strep Screen Positive (Negative) Discharge Plan Discharge Clinical Impression: Strep throat Patient Disposition: Home Condition: Stable Instructions: Antibiotic Form, Strep Throat (ED) Patient Language: Malagasy Prescriptions: New amoxicillin 500 mg tablet 500 mg PO Q12H Qty: 20 0RF Follow-up/Referrals: Yonis Landers MD [Primary Care Provider] - Time of Disposition: 13:17
== END 2024-08-01 13:21 | disposition home or self-care (01) ==
PROVIDERS: Emergency Provider Nurse Practitioner; PCP Emergency Medicine
DX: J02.0 Streptococcal pharyngitis (principal)
CPT/HCPCS: 87880; 99213; G0463

== ENCOUNTER 2024-10-11 16:49 | Emergency (ER) | payer BC, SELFPAY ==
--- OUTSIDE RECORDS SUMMARY | 2024-10-11 16:51 | XMS_ITS | Encounter Summary ---
Author Organization [employer] Address [address] [place] [address] Care Team Providers Care Loan Manager Name Role Phone Susie Padilla MD Primary [...] on file Legal Sex Female 5:42 AM CREDIT INTERVIEWER Gender Identity Not on file Sexual Orientation Not on file documented as of this encounter Plan of Treatment Not on file documented as of this encounter Visit Diagnoses Diagnosis Dizziness and giddiness documented in this encounter Care Teams Loan Manager Relationship Specialty Start Date End Date Susie Padilla MD PCP - General Internal Medicine 11/15/14 05/26/18 documented as of this encounter
--- OUTSIDE RECORDS SUMMARY | 2024-10-11 16:51 | XMS_ITS | Clinical Summary ---
Author Organization [facility] A Address [address] [place] [address] Care Team Providers Care Assistant Branch Manager Name Role Phone Sharifa Duran MD Unavailable [...] 12/16/2019 Assessment & Plan (04/26/2019 12:05 PM TECHNOLOGY CONSULTANT): r buttock buttock isolated patch 15 lesion shinglesin one of two areas that are not spreading to the rest of bodoy c=toaled with plant wire chief/ob and treats with valtrex all time and leans to treating as opposed to not valtrex 100 tid for 7 sdays. Keep covered and fluid the source of viral tranamission. Hand washing and see' plant wire chief/ob next week and can followup with her Hangnail, right 04/26/2019 05/19/2019 Assessment & Plan (04/26/2019 12:08 PM TECHNOLOGY CONSULTANT): Min and toical antibiotic creatm with cotton to hold to area Encounter for ultrasound to assess anatomy and growth in twin , antepartum 01/29/2019 01/29/2019 Screening, , for fe serene anatomic survey 01/29/2019 05/19/2019 PE (physical exam), annual 01/29/2019 0 11/21/2021 Assessment & Plan (12/16/2019 3:40 PM CDT): Well exam healthy female ask for Piror screening labs to add to chart see's plant wire chief and Keep up with . No preg [...] staff should administer the PHQ-9) 0 06/27/2021 [facility] - Occupational [...] exercise at this level? 0 min 12/16/2019 [place] Depression Scale Answer Date Recorded [place] Depression Scale Total 1 06/26/2022 The thought of harming myself has occurred to me . 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 Not on file Not [...] serrato MD Complications:Abruptio Place nta Delivery Location:This [facility] ([facility] PROCEDURE) Comments:Abruption 2022 Term [...] 9:13 AM CDT Height 172.7 cm (5' 8) 07/03/2022 9:13 AM CDT Body Mass Index [...] REFLEX TO GENOTYPING Routine 05/03/2020 10:29 AM TECHNOLOGY CONSULTANT Well woman exam Routine Papanicolaou smear Screening for human papillomavirus (HPV) from Last 3 Months or Most Recently Relevant to Health Maintenance Results * Hepatitis C antibody (12/19/2021 3:13 PM CDT) Hep C Ab Nonreactive Nonreactive KARL[facility] Comment: Interpretive Data Nonreactive: Antibodies to HCV [...] - GENERAL ORDERABLES Edited Result - Final [facility] [address] Department of [employer] [place], [place] [id number] * Pap and High Risk HPV, reflex to Genotyping (05/03/2020 10:29 AM TECHNOLOGY CONSULTANT) Swab 05/03/2020 10:2 9 AM TECHNOLOGY CONSULTANT 05/04/2020 2:28 PM TECHNOLOGY CONSULTANT Narrative PATHOLOGY [facility] - 05/09/2020 3:43 PM TECHNOLOGY CONSULTANT EPIC results best viewed via link to PDF [address] [address] Tele: Marga Valentine MD - Final Operations Technician CYTOLOGY REPORT Patient Name: AMBER REYES Address: [address] [place] [address] Gender: F : 1990 (Age: 30) Service: Laboratory Location: Lab Hospital #: [id number] Patient Type: [facility] Lab Taken: 05/03/2020 Reported: 05/09/2020 Physician(s): Sharifa [...] LAB CYTOLOGY ORDERABL ES Final Result PATHOLOGY [facility] Laboratory Receiving [address] [place] [address] from Last 3 Months or Most Recently Relevant to Health Maintenance Insurance [employer] ANTH ACCESS CHOICE Advance Directives For more information, please contact: [phone] * Full Code (Latest Code Status on File) Date Activated Date Inactivated Comments 05/24/2019 11:31 PM 05/28/2019 3:46 PM * Full Code Date Activated Date Inactivated Comments 05/24/2019 1:56 PM 05/24/2019 11:31 PM Full CPR in case of cardiopulmonary arrest * Full Code Date Activated Date Inactivated Comments 05/19/2019 5:58 PM 05/23/2019 2:30 PM Full CPR in case of cardiopulmonary arrest Care Teams Assistant Branch Manager Relationship Specialty Start Date End Date Andrez Restrepo PA [address] [facility] [address] [place] [id number] PCP - General Internal Medicine 12/06/21 Sharifa Duran MD [address] [place] [address] Consulting Physician Obstetrics and Gynecology 05/25/19
--- OUTSIDE RECORDS SUMMARY | 2024-10-11 16:51 | XMS_ITS | Continuity of Care Document ---
Author Organization [facility] Address [address] [place] [address] [place] [address] Phone Care Team Providers Care Refrigeration Operator Name Role Phone Yonis Landers MD Unavailable Unavailable Allergies, Adverse Reactions, Alerts Substance Reaction Status Criticality No Known Allergies Active No Inform ation Procedures Procedure Date PREV VISIT, EST, AGE 18-39 PREV VISIT, NEW, AGE 18-39 OFFICE/OUTPATIENT VISIT, [facility] Advance Directives Directive Yes / No Effective Date File Name No Information Encounters Encounter Description Practice Location Reason(s) For Visit Diagnoses Date Provider Providers Copied on Encounter PREV VISIT, EST, AGE 18-39 [facility], [address] [place] [place], [id number], [place] tel:[phone] [facility] physical (chief complaint) Encounter for general adult medical examination without abnormal findings [address], [address] [place], [address] , [place]. tel:[phone] PREV VISIT, NEW, AGE 18-39 [facility], [address], [place], [place], [id number], [place] tel:[phone] [facility] physical (chief complaint) Encounter for general adult medical exam w abnormal findingsFibromyalgi a [address], [place], [place], [id number] , [place]. tel:[phone] Family History Family Member Type Diagnosis Age At Onset Mother Problem unknown Maternal grandfather Problem High cholesterol Maternal grandmother Problem High cholesterol Maternal grandfather Problem Hypertension Maternal grandmother Problem Hypertension Father Problem unknown Payers Payer name Insurance type Covered democrat ID Authorsuzi prabhakar(s) No Information Social History [...] Mental Status Date Cognitive Assessment Orientation - [place] ed to time, place, person, situation.
--- OUTSIDE RECORDS SUMMARY | 2024-10-11 16:51 | XMS_ITS | Clinical Summary ---
Author Organization [facility] Address [address] [facility] [place] [address] Care Team Providers Care Baccarat Dealer Name Role Phone Andrew Huang MD Primary Care Provi penny Source Comments [facility],non-owned Affiliates and Associated Physician Practices is amultiple site organization consisting of ambulatory clinics and hospital sitesin [place], [place], [place] and [place]. This disclosure is being madepursuant to the Care Everywhere program and may not contain all information available regarding this patient. Last updated 17.[employer] [facility] Allergies No known active allergies Medications * [...] 11:27 AM CDT Height 172.7 cm (5' 8) 08/07/2018 11:27 AM CDT Body Mass Index 24.33 08/07/2018 11:27 AM CDT Plan of Treatment Health Maintenance Due Date Last Done Comments HIV SCREENING 01/21/2003 HEPATITIS C SCREENING 01/17/2006 DTAP/TDAP/TD VACCINES (1 - Tdap) 01/21/2007 HEPATITIS B VACCINE (1 of 3 - 19+ 3-dose series) 01/21/2007 COVID-19 VACCINE (1 - 2023-2 5 season) 2023 DEPRESSION SCREENING 04/07/2024 INFLUENZA VACCINE (#1) 2024 01/30/2018 ZOSTER VACCINE (1 of 2) 01/21/2038 HIB [...] complete this topic Insurance ANTHEM Care Teams Baccarat Dealer Relationship Specialty Start Date End Date Andrew Huang MD PCP - General Internal Medicine 08/07/18
--- OUTSIDE RECORDS SUMMARY | 2024-10-11 16:51 | XMS_ITS | Encounter Summary ---
Author Organization [employer] Address [address] [place] [address] Care Team Providers Care Riveting Machine Operator Tape Control Name Role Phone Susie Padilla MD Primary [...] on file Legal Sex Female 5:42 AM VARNISH MIXER Gender Identity Not on file Sexual Orientation Not on file documented as of this encounter Plan of Treatment Not on file documented as of this encounter Visit Diagnoses Diagnosis Dizziness and giddiness documented in this encounter Care Teams Riveting Machine Operator Tape Control Relationship Specialty Start Date End Date Susie Padilla MD PCP - General Internal Medicine 11/15/14 05/26/18 documented as of this encounter
--- OUTSIDE RECORDS SUMMARY | 2024-10-11 16:51 | XMS_ITS | Clinical Summary ---
Author Organization [facility] Address [address] [facility] [place] [address] Phone Care Team Providers Care Clinique Counter Manager Name Role Phone Unavailable Primary Care Provider [...] on file Legal Sex Female 5:42 AM PIN ATTACHER Gender Identity Not on file Sexual Orientation [...] 8:55 AM CDT Height 172.7 cm (5' 8) 09/17/2016 8:55 AM CDT Body Mass Index 22.05 09/17/2016 8:55 AM CDT Plan of Treatment Health Maintenance Due Date Last Done Comments DTAP/TDAP/TD VACCINES (1 - Tdap) 01/21/2007 HEPATITIS B VACCINES (1 of 3 - 19+ 3-dose series) 01/21/2007 HPV/Cotest (21-29) 01/21/2009 CERVICAL CANCER SCREENING 01/21/2018 HPV/Cotest (30-65) 01/21/2018 PAP SMEAR 01/21/2018 INFLUENZA VACCINE (#1) 2024 HPV VACCINES Aged Out No longer eligi ble based on patient's age to complete this topic Insurance
--- OUTSIDE RECORDS SUMMARY | 2024-10-11 16:51 | XMS_ITS | Referral Summary ---
Author Organization [facility] Building A Address [address] [place] [address] Care Team Providers Care Double End Tenoner Operator Name Role Phone Sharifa Duran MD Unavailable [phone] Andrez Restrepo Primary Care Provider Allergies No [...] 12/16/2019 Assessment & Plan (04/26/2019 12:05 PM RATE ANALYST): r buttock buttock isolated patch 15 lesion shinglesin one of two areas that are not spreading to the rest of bodoy c=toaled with box lidder/ob and treats with valtrex all time and leans to treating as opposed to not valtrex 100 tid for 7 sdays. Keep covered and fluid the source of viral tranamission. Hand washing and see' box lidder/ob next week and can followup with her Hangnail, right 04/26/2019 05/19/2019 Assessment & Plan (04/26/2019 12:08 PM RATE ANALYST): Min and toical antibiotic creatm with cotton to hold to area Encounter for ultrasound to assess anatomy and growth in twin , antepartum 01/29/2019 01/29/2019 Screening, , for fe serene anatomic survey 01/29/2019 05/19/2019 PE (physical exam), annual 01/29/2019 0 11/21/2021 Assessment & Plan (12/16/2019 3:40 PM CDT): Well exam healthy female ask for [place] screening labs to add to chart see's box lidder and Keep up with . No preg [...] exercise at this level? 0 min 12/16/2019 [place] Depression Scale Answer Date Recorded [place] Depression Scale Total 1 06/26/2022 The thought of harming myself has occurred to me . 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 Not [...] REFLEX TO GENOTYPING Routine 05/03/2020 10:29 AM RATE ANALYST Well woman exam Routine Papanicolaou smear Screening [...] GENERAL ORDERABLES Edited Result - Final [facility] [address] Department [place] [address] * Pap and High Risk HPV, reflex to Genotyping (05/03/2020 10:29 AM RATE ANALYST) Swab 05/03/2020 10:2 9 AM RATE ANALYST 05/04/2020 2:28 PM RATE ANALYST Narrative PATHOLOGY [facility] - 05/09/2020 3:43 PM RATE ANALYST [facility] results best viewed via link to PDF [id number] [place], [place] [address] Tele: Marga Valentine MD - Learning Support Assistant CYTOLOGY REPORT Patient Name: GWENDOLYN REYES Address: [address] [id number] Gender: F : 1990 (Age: 30) Service: Laboratory Location: Lab Hospital #: [id number] Patient Type: [facility] Lab Taken: 05/03/2020 Reported: 05/09/2020 Physician(s): Sharifa [...] LAB CYTOLOGY ORDERABL ES Final Result PATHOLOGY [facility] Laboratory Receiving [address] [place] [address] from Last 3 Months or Most Recently Relevant to Health Maintenance Insurance [employer] ACCESS CHOICE ANTHEM ACCESS CHOICE ANTHEM ACCESS CHOICE Advance Directives For more information, please contact: [phone] * Full Code (Latest Code Status on File) Date Activated Date Inactivated Comments 05/24/2019 11:31 PM 05/28/2019 3:46 PM * Full Code Date Activated Date Inactivated Comments 05/24/2019 1:56 PM 05/24/2019 11:31 PM Full CPR i n case of cardiopulmonary arrest * Full Code Date Activated Date Inactivated Comments 05/19/2019 5:58 PM 05/23/2019 2:30 PM Full CPR in case of cardiopulmonary arrest Care Teams Double End Tenoner Operator Relationship Specialty Start Date End Date Andrez Restrepo PA [address] [facility] [address] [place] [id number] PCP - General Internal Medicine 12/06/21 Sharifa Duran MD [address] [facility] [address] [address] Consulting Physician Obstetrics and Gynecology 05/25/19
--- OUTSIDE RECORDS SUMMARY | 2024-10-11 16:51 | XMS_ITS | Data Portability ---
Author Organization [facility] Address [address] [place] [address] Assessment Encounter Date Assessment Date Assessment LastModified by Organization Details LastModified Time 09/24/2024 09/24/2024 Annual gynecological exam performed. Patient will come back in a year unless there are new symptoms. Not available 09/24/2024 10:23:09 Plan of Treatment Reminders Order Date Submit Date Provider Last Modified By Organization Details Last Modified Time Details Appointments None recorded. Lab pap, IG + HR HPV - HPV regardless but if HPV is positive need subtyping 16,18/45 2024 025 [facility] (Lab), [address], [place], [address], 5 11:49:57 CMP, serum or plasma 2024 025 [facility], [address], [place], [address], 5 11:49:54 CBC w/ auto diff 2024 025 [facility], [address], [place], [address], 5 11:49:53 lipid panel, blood 2024 025 [facility], [address], [place], [address], 5 11:49:55 HbA1c (hemoglobin A1c), blood 2024 025 [facility], [address], [place], [address], 11:49:57 25-hydroxyv itamin D2 + 25-hydroxyv itamin D3, QN, serum or plasma 2024 025 [facility], [address], [place], [address], 11:49:56 TSH, serum or plasma 2024 025 [facility], [address], [place], [address], 11:49:56 Referral None recorded. Procedures None recorded. Surgeries None recorded. Imaging US, pelvis, complete 2024 025 [id number] [place] [facility] [address], [address], [place], [address], 11:39:23 Medication Orders None recorded. Patient TargetsNo targets recorded. Patient InstructionsNo instructions recorded. Reason for Referral None Reported. Results Created Date Observation Date Name Description Value Unit Range Abnormal Flag Note LastModifiedBy Organization Detail LastModifiedTime 09/25/1909/24/2024 CBC W/DIF F WBC 6.0 10'3/ uL 3.5-10 .5 Not Available [facility] (Lab) [address], [place], [address], 09/28/2024 11:49:53 09/25/1909/24/2024 CBC W/DIF F RBC 3.99 10'6/ uL (based on docume nted legal sex) 3.80-5 .20 Not Available [facility] (Lab) [address], [place], [address], 09/28/2024 11:49:53 09/25/19 25 09/24/2024 CBC W/DIF F HGB 10.8 g/dL (based on docume nted legal sex) 11.6-1 5.4 low Not Available [facility] (Lab) [address], [place], [address], 09/28/2024 11:49:53 09/25/19 25 09/24/2024 CBC W/DIF F HCT 35.6 % (based on docume nted legal sex) 34.0-4 5.0 Not Available [facility] (Lab) [address], [place], [address], 09/28/2024 11:49:53 09/25/19 25 09/24/2024 CBC W/DIF F MCV 89.2 fL 80.0-9 9.0 Not Available [facility] (Lab) [address], [place], [address], 09/28/2024 11:49:53 09/25/19 25 09/24/2024 CBC W/DIF F MCH 27.1 pg 27.0-3 4.0 Not Available [facility] (Lab) [address], [place], [address], 09/28/2024 11:49:53 09/25/19 25 09/24/2024 CBC W/DIF F MCHC 30.3 g/dL 32.0-3 5.5 low Not Available [facility] (Lab) [address] [place], [address], 09/28/2024 11:49:53 09/25/19 25 09/24/2024 CBC W/DIF F RDW 15.6 % 11.0-1 5.0 high Not Available [facility] (Lab) [address], [place], [address], 09/28/2024 11:49:53 09/25/19 25 09/24/2024 CBC W/DIF F plt 258 10'3/ uL 150-40 0 Not Available [facility] (Lab) [address] [place], [address], 09/28/2024 11:49:53 09/25/19 25 09/24/2024 CBC W/DIF F MPV 12.6 fL 8.8-12 .1 high Not Available [facility] (Lab) [address], [place], [address], 09/28/2024 11:49:53 09/25/19 25 09/24/2024 CBC W/DIF F NRBC's 0.0 % 0.0 Not Available [facility] (Lab) [address], [place], [address], 09/28/2024 11:49:53 09/25/19 25 09/24/2024 CBC W/DIF F absolute NRBCs 0.0 10'3/ uL no refere nce range establ ished Not Available [facility] (Lab) [address], [place], [address], 09/28/2024 11:49:53 09/25/19 25 09/24/2024 CBC W/DIF F neutrophils 44.1 % 34.0-7 3.0 Not Available [facility] (Lab) [address], [place], [address], 09/28/2024 11:49:53 09/25/19 25 09/24/2024 CBC W/DIF F lymphocytes 36.4 % 15.0-5 0.0 Not Available [facility] (Lab) [address], [place], [address], 09/28/2024 11:49:53 09/25/19 25 09/24/2024 CBC W/DIF F monocytes 9.5 % 1.0-15 .0 Not Available [facility] (Lab) [address], [place], [address], 09/28/2024 11:49:53 09/25/19 25 09/24/2024 CBC W/DIF F eosinophils 8.7 % 0.0-8. 0 high Not Available [facility] (Lab) [address] [place], [address], 09/28/2024 11:49:53 09/25/19 25 09/24/2024 CBC W/DIF F basophils 1.0 % 0.0-2. 0 Not Available [facility] (Lab) [address] [place], [address], 09/28/2024 11:49:53 09/25/19 25 09/24/2024 CBC W/DIF F immature granulocytes 0.3 % no define d refere nce range Immat ure Granu locyt es (IG) repre sents autom ated enume ratio n of Metam yeloc ytes, Myelo cytes and Promy elocy nery when IG is < 5%. Blast s are not inclu ded in IG and repor storm separ ately if prese nt. Not Available [facility] (Lab) [address], [place], [address], 09/28/2024 11:49:53 09/25/19 25 09/24/2024 CBC W/DIF F absolute neutrophils 2.7 10'3/ uL 1.5-8. 0 Not Available [facility] (Lab) [address] , [place], [address], 09/28/2024 11:49:53 09/25/19 25 09/24/2024 CBC W/DIF F absolute lymphocytes 2.2 10'3/ uL 1.0-4. 0 Not Available [facility] (Lab) [address] , [place], [address], 09/28/2024 11:49:53 09/25/19 25 09/24/2024 CBC W/DIF F absolute monocytes 0.6 10'3/ uL 0.2-1. 0 Not Available [facility] (Lab) [address], [place], [address], 09/28/2024 11:49:53 09/25/19 25 09/24/2024 CBC W/DIF F absolute eosinophils 0.5 10'3/ uL 0.0-0. 6 Not Available [facility] (Lab) [address], [place], [address], 09/28/2024 11:49:53 09/25/19 25 09/24/2024 CBC W/DIF F absolute basophils 0.1 10'3/ uL 0.0-0. 3 Not Available [facility] (Lab) [address], [place], [address], 09/28/2024 11:49:53 09/25/19 25 09/24/2024 CBC W/DIF F absolute immature granulocytes 0.0 10'3/ uL 0.00-0 .10 : 09/03 : Routi ne : ENDOC ERVIC AL/CE RVICA L Refer ence range s for nonbi nary/ inter sex or unspe cifie d gende r patie nts have not been estab lishe d. Pleas e refer to the follo wing table for range s estab lishe d for cisge nder patie nts and evalu ate in the clini judith richy xt of the indiv idual patie nt: https ://shani uriarte book. nm.or g/gen derx Not Available [facility] (Lab) [address], [place], [address], 09/28/2024 11:49:53 09/25/19 25 09/24/2024 CMP(C OMPRE HENSI VE METAB OLIC PANEL ) sodium 139 mmol/ L 133-14 6 Not Available [facility] (Lab) [address], [place], [address], 09/28/2024 11:49:54 09/25/19 25 09/24/2024 CMP(C OMPRE HENSI VE METAB OLIC PANEL ) potassium 4.1 mmol/ L 3.5-5. 1 Not Available [facility] (Lab) [address], [place], [address], 09/28/2024 11:49:54 09/25/19 25 09/24/2024 CMP(C OMPRE HENSI VE METAB OLIC PANEL ) chloride 104 mmol/ L 98-107 Not Available [facility] (Lab) [address], [place], [address], 09/28/2024 11:49:54 09/25/19 25 09/24/2024 CMP(C OMPRE HENSI VE METAB OLIC PANEL ) carbon dioxide 27 mmol/ L 21-31 Not Available [facility] (Lab) [address], [place], [address], 09/28/2024 11:49:54 09/25/19 25 09/24/2024 CMP(C OMPRE HENSI VE METAB OLIC PANEL ) anion gap 8 mmol/ L 4-13 Not Available [facility] (Lab) [address], [place], [address], 09/28/2024 11:49:54 09/25/19 25 09/24/2024 CMP(C OMPRE HENSI VE METAB OLIC PANEL ) blood urea nitrogen 15 mg/dL 7-25 Not Available [facility] (Lab) [address], [place], [address], 09/28/2024 11:49:54 09/25/19 25 09/24/2024 CMP(C OMPRE HENSI VE METAB OLIC PANEL ) creatinine 0.70 mg/dL 0.60-1 .30 Not Available [facility] (Lab) [address], [place], [address], 09/28/2024 11:49:54 09/25/19 25 09/24/2024 CMP(C OMPRE HENSI VE METAB OLIC PANEL ) egfrcr (CKD-epi 2020) >90 mL/mi n/1.7 3_m2 >=60 Not Available [facility] (Lab) [address], [place], [address], 09/28/2024 11:49:54 09/25/19 25 09/24/2024 CMP(C OMPRE HENSI VE METAB OLIC PANEL ) calcium 9.4 mg/dL 8.3-10 .5 Not Available [facility] (Lab) [address], [place], [address], 09/28/2024 11:49:54 09/25/19 25 09/24/2024 CMP(C OMPRE HENSI VE METAB OLIC PANEL ) glucose 83 mg/dL 70-100 Not Available [facility] (Lab) [address] [place], [address], 09/28/2024 11:49:54 09/25/19 25 09/24/2024 CMP(C OMPRE HENSI VE METAB OLIC PANEL ) protein, total 7.5 g/dL 6.4-8. 3 Not Available [facility] (Lab) [address], [place], [address], 09/28/2024 11:49:54 09/25/19 25 09/24/2024 CMP(C OMPRE HENSI VE METAB OLIC PANEL ) albumin 4.7 g/dL 3.5-5. 0 Not Available [facility] (Lab) [address], [place], [address], 09/28/2024 11:49:54 09/25/19 25 09/24/2024 CMP(C OMPRE HENSI VE METAB OLIC PANEL ) ALT 11 units /L 9-43 Not Available [facility] (Lab) [address] [place], [address], 09/28/2024 11:49:54 09/25/19 25 09/24/2024 CMP(C OMPRE HENSI VE METAB OLIC PANEL ) alkaline phosphatase 51 units /L 34-104 Not Available [facility] (Lab) [address] [place], [address], 09/28/2024 11:49:54 09/25/19 25 09/24/2024 CMP(C OMPRE HENSI VE METAB OLIC PANEL ) AST 15 units /L 13-39 Not Available [facility] (Lab) [address] [place], [address], 09/28/2024 11:49:54 09/25/19 25 09/24/2024 CMP(C OMPRE HENSI VE METAB OLIC PANEL ) bilirubin, total 0.4 mg/dL 0.2-1. 2 : 09/03 : Vickey ne : ENDOC ERVIC AL/CE RVICA L Not Available [facility] (Lab) [address] [place], [address], 09/28/2024 11:49:54 09/25/19 25 09/24/2024 LIPID PANEL ,AMA (LDL- CALC) total cholesterol 172 mg/dL 0-199 Not Available [facility] (Lab) [address] [place], [address], 09/28/2024 11:49:55 09/25/19 25 09/24/2024 LIPID PANEL ,AMA (LDL- CALC) triglyceride s 44 mg/dL 0-150 NCEP Refer ence Value s for Trigl yceri diana: Lakshmi l: <150 mg/dL Borde rline High: 150 - 199 mg/dL High: 200 - 499 mg/dL Very High: >/= 500 mg/dL Not Available [facility] (Lab) [address] [place], [address], 09/28/2024 11:49:55 09/25/19 25 09/24/2024 LIPID PANEL ,AMA (LDL- CALC) HDL cholesterol 64 mg/dL >40 Not Available [facility] (Lab) [address] [place], [address], 09/28/2024 11:49:55 09/25/19 25 09/24/2024 LIPID PANEL ,AMA (LDL- CALC) LDL cholesterol 95 mg/dL 0-99 Cutof f value s recom zach d by the Natio nal Cheyanne stero l Educa tion Progr am: SISSY ABLE: Cheyanne stero l <200 mg/dL LDL <100 mg/dL BORDE RLINE : Cheyanne stero l 200-2 39 mg/dL LDL 101-1 59 mg/dL HIGHE R RISK: Cheyanne stero l >240 mg/dL LDL >160 mg/dL , HDL <40 mg/dL Not Available [facility] (Lab) [address], [place], [address], 09/28/2024 11:49:55 09/25/1909/24/2024 LIPID PANEL ,AMA (LDL- CALC) non-HDL cholesterol 108 mg/dL no refere nce range A reaso nable goal for non-H DL cheyanne stero l is one that is 30 mg/dL highe r than the LDL cheyanne stero l goal. Not Available [facility] (Lab) [address], [place], [address], 09/28/2024 11:49:55 09/25/1909/24/2024 LIPID PANEL ,AMA (LDL- CALC) chol/HDL ratio 2.7 . 0.0-5. 0 : 09/03 : Vickey ne : ENDOC ERVIC AL/CE RVICA L On July 30, 2022, [facility] labor atori es olea ed the equat ion for calcu latin g estim ated low-d ensit y lipop rotei n-cho leste rol (LDL- C) from the Fried donita equat ion to the Paula urvashi/Halley martin equat ion. This new equat ion is only valid for lipid panel s with trigl yceri diana < 400 mg/dL . Studi es sandra parrishon merrill ed that this new equat ion will impro ve the accur acy of LDL-C , espec ially in scena weinberg when LDL-C denise ntrat ions are relat ively low (< 100 mg/dL ), trigl yceri diana are eleva storm, or patie nt is non-f astin g. Refer ences : - [place], Ankur Reese , Shad holguin, Kwaku Liu, Kwaku david, [facility] , and Bernard Moon . 2013. Comp ariso n of a Novel Metho d vs the Fried donita Equat ion for Estim ating Low-D ensit y Lipop rotei n Cheyanne stero l Level s from the Stand iraida Lipid [place] ingram. KAYLYNN: The Journ al of the Ameri can Medic al Assoc iatio n 310 19): 2060- . - Parth walker V, Danya J, John walker A, Miguelito M, Hilario serrato R, Olinda walker E, Amirah nthal RS, Moon SR, Paula n SS. Fast ing Versu s Nonfa sting and Low-D ensit y Lipop rotei n Cheyanne stero l Accur acy. Circu latio n. 2017Apr 08;137 (1):1 0-19. Not Available [facility] (Lab) [address], [place], [address], 09/28/2024 11:49:55 09/25/19 25 09/24/2024 TSH, REFLE X FREE T4 TSH 0.87 uIU/m L 0.30-5 .33 : 09/03 : Routi ne : ENDOC ERVIC AL/CE RVICA L Not Available [facility] (Lab) [address], [place], [address], 09/28/2024 11:49:55 09/25/19 25 09/24/2024 VITAM IN D, 25-OH (TOTA L D2/D3 ) vitamin D, 25-hydroxy, total 28.2 NG/mL 30.0-1 00.0 low : 09/03 : Routi ne : ENDOC ERVIC AL/CE RVICA L Sugge stive of Defic iency : <20 ng/mL Sugge stive of Insuf ficie ncy: 20-29 ng/mL Sugge stive of Suffi cienc y: 30-10 0 ng/mL Sugge stive of Toxic ity: >150 ng/mL Not Available [facility] (Lab) [address], [place], [address], 09/28/2024 11:49:56 09/25/19 25 09/24/2024 HEMOG LOBIN A1C hemoglobin A1C 5.5 % 4.0-5. 6 : 09/03 : Vickey ne : ENDOC ERVIC AL/CE RVICA L The Ameri can Diabe nery Assoc iatio n recom mends that a prima ry goal of thera py shoul d be a HBA1C of < 7% and that physi cians shoul d reeva luate the treat ment regim en in patie nts with HBA1C value s consi stent ly > 8%. <5.7% Lakshmi l 5.7 - 6.4% Incre ased risk for diabe nery >=6.5 % Diagn ostic of diabe nery <7.0% Goal of thera py >8.0% Actio n sugge sted Not Available [facility] (Lab) [address], [place], [address], 09/28/2024 11:49:57 09/25/19 25 09/24/2024 IMAGE GUIDE D PAP AND HPV REGAR DLESS image guided Pap, HPV regardless of Pap result SEE RESULT S BELOW CASE REPOR T: Cytol ogy Gynec ologi judith Repor t Case: [id number] Autho eileen g Provi penny: Domi Dejesus, LEON Colle cted: 09/24 1025 Order ing Locat ion: [place] [facility] Recei mckayla: 09/25 0058 First Scree n: Neftaly Vazquez am, CT Speci men: Scree julián Pap - Image d, Cervi x STATE MENT OF ADEQU ACY: Satis facto ry for evalu ation Trans forma tion zone compo nent prese nt ----- ----- ----- ----- ----- ----- ----- ----- ----- ----- ----- ----- ----- ----- ----- ----- ----- ---- FINAL DIAGN OSIS: Negat keagan for Intra epith elial Lesio n or Sanjuanita fabian (NIL) . Elect ghazal mehta by Neftaly Vazquez am, CT on 2024 at 1046 CDT ----- ----- ----- ----- ----- ----- ----- ----- ----- ----- ----- ----- ----- ----- ----- ----- ----- ---- HPV RESUL TS: HPV mRNA E6/E7 : No HPV mRNA Detec storm NOTE: This high risk HPV mRNA assay detec ts fourt een high- risk HPV types (16, 18, 31, 33, 35, 39, 45, 51, 52, 56, 58, 59, 66, 68) witho ut diffe renti ation . COMME NT: This speci men was revie wed by a Cytot echno logis t and/o r Patho logis t (as indic ated in this repor t) after evalu ation using the Thinp rep Imagi ng Syste m. CLINI JUDITH INFOR MATIO N: Menst rual Statu s: LMP (if appli cable ): Clini judith Histo ry/Pr eviou s Pap: Type of Neopl omayra (if appli cable ): Signi fican t Clini judith Findi ngs: Other Histo ry: Hormo vanessa (if appli cable ): PAP EDUCA DARREL L NOTE: The Pap Test is a scree julián test with an inher ent false negat keagan rate. Liqui d-bas ed sampl ing may decre ase, but will not elimi matti, false negat keagan resul ts. A negat keagan resul t does not precl ude the prese nce and/o r devel opmen t of disea se, since the prese nce of abnor mal cells in the sampl e depen ds on the locat ion of the lesio n and sampl ing techn ique. Tobias nued regul ar scree julián is the best metho d of cance r preve ntion . If repor storm cytol ogic findi ng do not corre late with physi judith and/o r histo rical findi ngs, fur er inves tigat ion is recom zach d, as clini paul warra nted. Not Available [facility] (Lab) [address], [place], [address], 09/28/2024 11:49:57 Result Notes None recorded. Procedures Surgical History Date Name Laterality Status Provider Name and Address Organization Details Recorded Time 3 Caesarean Section completed [facility] 09/24/2024 10:23:32 3 Tubal Ligation completed [facility] 09/24/2024 10:32:33 0 Caesarean Section completed [facility] 09/24/2024 10:23:32 Imaging Results None recorded. Procedure Notes None recorded. Medical Equipment None Reported. Allergies No known drug allergies Medications Name Sig Start Date Stop Date Status Note LastModified by Organization Details LastModified Time cholecalciferol (vitamin D3) 1,250 mcg (50,000 unit) capsule Take 1 capsule every week by oral route. 2024 active Not Available Not Available Not Avai lable Vitals Date Recorded Body weight Body mass index (BMI) Body height Systolic And Diastolic Provider Name and Address Organization Details Last Updated DateTime 09/24/2024 84441.6 g 30.3 kg/m2 172.72 cm 115/76 mm[Hg] [facility] 09/24/2024 10:28:14 Social History Question Answer Notes LastModified by Organizat ion Details LastModified Time Do You Have An Advance Directive? No [email or web address] Information n ot available 09/24/2024 How Many Years Have You Consumed Alcohol? 15 [email or web address] Information not available 09/24/2024 Are You Blind Or Do You Have Difficulty Seeing? No [email or web address] Information not available 09/24/2024 What Is Your Level Of Caffeine Consumption? Heavy [email or web address] Information not available 09/24/2024 How Much Tobacco Do You Chew? None [email or web address] Information not available 09/24/2024 In The 14 Days Before Symptom Onset, Have You Had Close Contact With A Laboratory-confirme d COVID-19 While That Case Was Ill? No Information n ot available 09/24/2024 In The 14 Days Before Symptom Onset, Have You Had Close Contact With A Person Who Is Under Investigation For COVID-19 While That Person Was Ill? No [email or web address] Information not available 09/24/2024 Have You Been To An Area Known To Be High Risk For COVID-19? No [email or web address] Information not available 09/24/2024 Are You Deaf Or Do You Have Serious Difficulty Hearing? No [email or web address] Information not available 09/24/2024 What Type Of Diet Are You Following? REGULAR [email or web address] Information n ot available 09/24/2024 What Is The Highest Grade Or Level Of School You Have Completed Or The Highest Degree You Have Received? [id number] [email or web address] Information not available 09/24/2024 Do You Use Protection During Sex? No [email or web address] Information not available 09/24/2024 Do You Use Your Seat Belt Or Car Seat Routinely? Yes [email or web address] Information not available 09/24/2024 Are You Sexually Active? Yes Information not available 09/24/2024 Do You Have Smoke And Carbon Monoxide Detectors In Your Home? Yes Information not available 09/24/2024 How Much Tobacco Do You Smoke? No [email or web address] Information not available 09/24/2024 Do You Use Sunscreen Routinely? Yes [email or web address] Information not available 09/24/2024 Have You Used IV Drugs? No [email or web address] Information not available 09/24/2024 Do You Have Difficulty Walking Or Climbing Stairs? No [email or web address] Information not available 09/24/2024 Sex: Unknown Functional Status Question Answer Note LastModified by Organizat ion Details LastModified Time Do you use any illicit or recreational drugs? No [email or web address] Information not available 09/24/2024 What is your level of alcohol consumption? Occasional Information not available 09/24/2024 Are you currently employed? Yes [email or web address] Information not available 09/24/2024 Are you able to walk? YESWOREST [email or web address] Information not available 09/24/2024 Are you able to care for yourself? 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 No [email or web address] Information not available 09/24/2024 What is your exercise level? Occasional [email or web address] Information not available 09/24/2024 Mental Status Question Answer Note LastModified by Organization D etails LastModified Time Do you feel stressed (tense, restless, nervous, or anxious, or unable to sleep at night)? [id number] [email or web address] Information not available 09/24/2024 Family History Relationship Description Onset Age of this Age Resolved Age Notes LastModified by Organization Details LastModified Time Unspecified Relation Family history unknown [email or web address] Not available 2024 10:23:31 Medical History Condition Response No Past Medical History Y Gynecological History Statement/Question Response Flow Heavy Date of LMP 09/03/2024 On BCP's at Conception? N Was last menstrual period normal Y STIs/STDs N Duration of Flow (days) 7 Current Control Method Tubal Ligat ion Age at First Child 27 Are cycles usually normal Y Sexually Active? Y Menses Monthly Y Date of Last Pap Smear Sexual Problems? N LMP Definite N Obstetrics History GPAL:G 3 P 3 0 0 3 Type Value Full Term 3 Living 3 Total 3 Past Encounters Encounter ID Performer Location Encounter Start Date Encounter Closed Date Diagnosis/Indication Diagnosis SNOMED-CT Code Diagnosis ICD10 Code Diagnosis Note [id number] SRUTHI [facility] [address] [address] 09/24/2024 10:14:54 09/24/2024 11:39:23 Gynecologic examination 95923522 Z01.419 WWEBC - BTLPap - done todaySTI screen - declinedRo utine labs - orderedRTC in 1 yr or sooner if needed It is strongly advised to have an annual flu shot and up can obtain at most pharmacies . If you have not had a TDap shot in the last 10 years you should obtain one as well. Discussed with patient & provided with informatio n regarding the HPV vaccine if applicable . Encourage safe sexual practices, to use condoms and limit partners if not already in a monogamous relationsh ip. Do monthly self breast exams. BRCA testing is now available for patients with strong genetic history of female cancer. If interested contact the office. Engage in regular exercise. Avoid tobacco and illicit drugs. This lifestyle behavior pattern will lead to less health conditions and longer life span. If BMI greater than 25 dietary consult advised. Questions answered. Adult heal th examination 604947107 Z00.00 Dysmenorrhea 313181688 N 94.6 Plan pelvic u/sdiscuss ed management options Health Concerns Section Related Observation LastModified by Organization Detai ls LastModified Time None Recorded Concern Status LastModified by Organization Details LastModified Time None Recorded Advance Directives Directive N: Payers Insurance Date Sequence Insurance Name Policy Number Policy Henderson Covered Member ID Henderson Member ID Guarantor Name 09/28/2024 1 [employer] [id number] N Gwendolyn Gibbons [id number] Gwendolyn Gibbons Notes Date Note Type Note Provider Name and Address Organization Details Recorded Time 09/24/2024 text/html Annual GYNReport ed bypatient.Menstrua l cycle:Normal menses Urinary symptoms:No hematuria; No incontinence Vulva:No genital lesion Vagina:Normal vaginal discharge Breast:No breast pain; No breast lump; No nipple discharge Current Contraception:Sati sfied with current contraception; Tubal ligation Sexual complaints:No sexual complaints; No pain during intercourse; Normal libido Menopausal Symptoms:No menopausal symptoms; Normal vaginal lubrication Psychological symptoms:No depression; No anxiety; No PMDD Preventive measures:Encourage self breast examination; Encourage regular exercise; Encourage no tobacco use; Encourage regular mammograms starting age 38Notes:34yo wweBC - BTLlast pap 2022, no h/o abnormal paps per ptMonthly periods, lasting about 7 days. Day 2-3 heavier, changing pads every 1-2 hours/cramping. SRUTHI Wilhelm [address], [place], [address], [facility] 09/24/2024 11:36:58 OBGyn Episode Ob Episode Information Episode Created Date Number of Fetuses Patient Bloodtype Patient rh Status Prepregnancy Weight lbs Domestic Partner Domestic Partner Phone Father Name Habilitation Worker Status 09/25/19 25 1 CLOSED Fetus Data First Name Last Name Admitted to NICU Weight (g) Sex Living Outcome Pediatric Complications Fetus ID Race Codes Race Delivery Type 2721.55 2 F Full Term [id number] Primary Michael Calculation Initial Michael Date Initial Exam Date Initial Exam Provider Initial Ultrasound Date Last Menstrual Period Date Ultra Sound Weeks Gestation 0 Eighteen To Twenty Week Michael Update Ultra Sound Date Fundal Height At Umbil Quickening Date Ultra Sound Latest Weeks Gestation Final Michael Confirmed By Final Michael Confirmed Date Final Michael Date Ultra Sound Latest Days Gestation 0 0 Menstrual History Last Menstrual Date Menses Monthly On Bcp Conception Prior Menses Frequency Hcg Plus Date Menarche Onset Age Delivery Information Delivery Date Delivery Type Labor Anesthesia Weeks Gestation Incision Type Labor Labor Length Hrs Delivered By Post Complications Tubal Sterilization Discharge Date Comments 3 37 Discharge Information Feeding Method Contraceptive Method Maternal HG B and HCT Levels Ob Episode Information Episode Created Date Number of Fetuses Patient Bloodtype Patient rh Status Prepregnancy Weight lbs Domestic Partner Domestic Partner Phone Father Name Habilitation Worker Status 09/25/19 1 CLOSED Fetus Data First Name Last Name Admitted to NICU Weight (g) Sex Living Outcome Pediatric Complications Fetus ID Race Codes Race Delivery Type 3628.73 6 F Full Term [id number] Vaginal Delivery Michael Calculation Initial Michael Date Initial Exam Date Initial Exam Provider Initial Ultrasound Date Last Menstrual Period Date Ultra Sound Weeks Gestation 0 Eighteen To Twenty Week Michael Update Ultra Sound Date Fundal Height At Umbil Quickening Date Ultra Sound Latest Weeks Gestation Final Michael Confirmed By Final Michael Confirmed Date Final Michael Date Ultra Sound Latest Days Gestation 0 0 Menstrual History Last Menstrual Date Menses Monthly On Bcp Conception Prior Menses Frequency Hcg Plus Date Menarche Onset Age Delivery Information Delivery Date Delivery Type Labor Anesthesia Weeks Gestation Incision Type Labor Labor Length Hrs Delivered By Post Complications Tubal Sterilization Discharge Date Comments 8 40 Discharge Information Feeding Method Contraceptive Method Maternal HG B and HCT Levels Ob Episode Information Episode Created Date Number of Fetuses Patient Bloodtype Patient rh Status Prepregnancy Weight lbs Domestic Partner Domestic Partner Phone Father Name Habilitation Worker Status 09/25/19 25 1 CLOSED Fetus Data First Name Last Name Admitted to NICU Weight (g) Sex Living Outcome Pediatric Complications Fetus ID Race Codes Race Delivery Type 2154.56 2 F Full Term [id number] Primary Michael Calculation Initial Michael Date Initial Exam Date Initial Exam Provider Initial Ultrasound Date Last Menstrual Period Date Ultra Sound Weeks Gestation 0 Eighteen To Twenty Week Michael Update Ultra Sound Date Fundal Height At Umbil Quickening Date Ultra Sound Latest Weeks Gestation Final Michael Confirmed By Final Michael Confirmed Date Final Michael Date Ultra Sound Latest Days Gestation 0 0 Menstrual History Last Menstrual Date Menses Monthly On Bcp Conception Prior Menses Frequency Hcg Plus Date Menarche Onset Age Delivery Information Delivery Date Delivery Type Labor Anesthesia Weeks Gestation Incision Type Labor Labor Length Hrs Delivered By Post Complications Tubal Sterilization Discharge Date Comments 0 37 Discharge Information Feeding Method Contraceptive Method Maternal HG B and HCT Levels
--- OUTSIDE RECORDS SUMMARY | 2024-10-11 16:53 | XMS_ITS | Continuity of Care Document ---
Author Organization [facility] Address [address] [place] [address] [place] [address] Phone Care Team Providers Care Cooler Service Supervisor Name Role Phone Yonis Landers MD Unavailable Unavailable Allergies, Adverse Reactions, Alerts Substance Reaction Status Criticality No Known Allergies Active No Inform ation Procedures Procedure Date PREV VISIT, EST, AGE 18-39 PREV VISIT, NEW, AGE 18-39 OFFICE/OUTPATIENT VISIT, [facility] Advance Directives Directive Yes / No Effective Date File Name No Information Encounters Encounter Description Practice Location Reason(s) For Visit Diagnoses Date Provider Providers Copied on Encounter PREV VISIT, EST, AGE 18-39 [facility], [address] [place], [id number], [place] tel:[phone] [facility] physical (chief complaint) Encounter for general adult medical examination without abnormal findings [address]. [address], [address] [place], [place], [id number] , [place]. tel:[phone] PREV VISIT, NEW, AGE 18-39 [facility], [address], [place], [place], [id number], [place] tel:[phone] [facility] physical (chief complaint) Encounter for general adult medical exam w abnormal findingsFibromyalgi a [address]. [address], [place], [place], [id number] , [place]. tel:[phone] Family History Family Member Type Diagnosis Age [...] Mental Status Date Cognitive Assessment Orientation - [place] ed to time, place, person, situation.
[2024-10-11 16:59] VITALS: BP 119/69; PULSE 87; RESP 16; TEMP 37; O2SAT 100
--- NOTE | 2024-10-11 17:03 | ED_ITS ---
HPI - Ear Problem General Chief complaint: Ear Stated complaint: Ear Pain Time Seen by Provider: 10/11/24 17:03 Source: patient, RN notes reviewed and old records reviewed Mode of arrival: ambulatory Limitations: no limitations History of Present Illness HPI Narrative: 34-year-old female presents to the [facility] with bilateral ear fullness, muscle hearing. States that started last night. Worse on the left than the right. No treatment prior to arrival. Treatment prior to arrival: none Related Data Allergies Allergy/AdvReac Type Severity Reaction Status Date / Time No Known Allergies Allergy Verified 08/01/24 13:03 Review of Systems Review of Systems: All systems reviewed & are unremarkable except as noted in HPI and below Constitutional: Constitutional: Reports no additional constitutional complaints ENT: Reports as per HPI Musculoskeletal: Musculoskeletal: Reports no additional musculoskeletal complaints Integumentary/Breasts: Skin/Breast: Reports system reviewed and no additional complaints, except as docu PMFSH Past Medical History Medical History No pertinent past medical history Surgical History Surgical History No pertinent past surgical history Family History Family History Mother Family history non-contributory Social History Social History Smoking status: Never smoker Living arrangements: with family Gender identity (if verbalized by the patient): Female Spiritual care concerns: No Comments At the time of my signature, I reviewed and agree with the nursing past medical, surgical, social, and family history. There is no relevant family history pertinent to the patient complaint. Exam Const: General: cooperative, healthy appearing, comfortable, no acute distress, well developed, alert and well nourished Nutritional Appearance: well nourished Orientation/consciousness: patient oriented x3 Limitations: no limitations HENMT: Head: normal to inspection Ears: hearing grossly normal bilaterally, external ears normal, mastoids normal, no periauricular adenopathy and Abnormal EAC present cerumen impaction bilateral Face/Nose/Sinus: Normal external nose present and Normal nares present Mouth: Yes Normal oral and palatal mucosa present, Yes lip normal, Yes tongue normal and Yes moist mucous membranes Throat: posterior oropharynx normal, uvula midline and no uvular edema Eyes: General: appearance normal, both eyes and all related structures Alignment and Position: alignment normal Neck: Neck: normal visual inspection, full ROM, no lymphadenopathy and no meningeal signs Chest: Chest palpation & inspection: normal inspection of the chest Resp: Effort & Inspection: normal respiratory effort and able to speak in complete sentences Cardio: Rate: regular rate Skin: General skin exam: normal color and no rashes or lesions noted Neuro: General: patient oriented x3, gait normal, moves all extremities and no meningeal signs Cognition (Neuro): normal cognition Speech: normal speech Gait exam (Neuro): Normal gait present Extrem: General: normal to inspection, full ROM, capillary refill normal and normal gait Psych: Appearance: grossly normal and well kempt Mental Status: mental status grossly normal Speech and movement: Normal speech and movement present and Clear speech present Affect: normal affect Attitude: cooperative Course Course Level of Care: Express Care Visit Vital Signs Vital signs: Vital Signs Temperature 98.6 F 10/11/24 16:59 Pulse Rate 87 10/11/24 16:59 Respiratory Rate 16 10/11/24 16:59 Blood Pressure 119/69 10/11/24 16:59 Pulse Oximetry 100 10/11/24 16:59 Oxygen Delivery Room Air 10/11/24 16:59 Temperature 98.6 F 10/11/24 16:59 Pulse Rate 87 10/11/24 16:59 Respiratory Rate 16 10/11/24 16:59 Blood Pressure 119/69 10/11/24 16:59 Pulse Oximetry 100 10/11/24 16:59 Oxygen Delivery Room Air 10/11/24 16:59 Reviewed Procedures Ear Wax Removal Both Ears: Ear Wax Removal Date: 10/11/24 Ear Wax Removal Time: 17:13 Cerumenolytic Used: other Results: Re-examined: cerumen removed completely TM Examination: TM(s) intact, normal appearance Ear Canal Exam: atraumatic Patient Tolerated Procedure: well Complications: no problems Technique: ear canal irrigated and ear canal curetted Medical Decision Making MDM Narrative Medical decision making narrative: Patient sitting comfortably in exam room. Nontoxic, vitals stable. Patient in no acute distress Patient presents with muffled hearing, bilateral ear fullness. Bilateral cerumen impaction is noted ears irrigated, successful removal of cerumen. Patient tolerated well patient appropriate for outpatient treatment with close follow-up Discharge instructions reviewed with patient, as well as provided in writing per nursing staff. The instructions also include specific and strict return/GO TO THE ER as well as f/u information. All questions have been answered, and the patient deny any further questions with discharge and discharge plan. Some parts of this dictation were generated by voice recognition software and may contain typographical and/or grammatical inaccuracies. Differential Diagnosis Differential Diagnosis: otitis media, serous otitis otitis externa, cerumen impaction, URI Medical Records Medical records reviewed: Yes I reviewed the external patient's medical records. Vital Signs Vital Signs: Vital Signs Temperature 98.6 F 10/11/24 16:59 Pulse Rate 87 10/11/24 16:59 Respiratory Rate 16 10/11/24 16:59 Blood Pressure 119/69 10/11/24 16:59 Pulse Oximetry 100 10/11/24 16:59 Oxygen Delivery Room Air 10/11/24 16:59 Temperature 98.6 F 10/11/24 16:59 Pulse Rate 87 10/11/24 16:59 Respiratory Rate 16 10/11/24 16:59 Blood Pressure 119/69 10/11/24 16:59 Pulse Oximetry 100 10/11/24 16:59 Oxygen Delivery Room Air 10/11/24 16:59 Reviewed Lab Data Lab results reviewed: Yes I reviewed the patient's lab results. Labs: Reviewed Critical Care Time Critical Care Time Critical Care Time: No Discharge Plan Discharge Clinical Impression: Bilateral impacted cerumen Patient Disposition: Home Condition: Stable Instructions: Antibiotic Form, Carbamide Peroxide (Into the ear) Additional Instructions: You had Cerumen (EAR wax impaction). Do not use Q-tips or put anything in the e ar. This can damage the ear. Instead , use Debrox or ear wax remover. Place 5 drops in ear after a hot shower and place a warm compress over the ear for 20 minutes. alternate doing this every 3-4 days. It will break up the wax gently. Do not use too much pressure. Once you have all of the cerumen out of your ears, you may do preventative treatment to prevent this from happening again. Use 5 drops once weekly after a hot shower. Patient Language: Romanian Follow-up/Referrals: PHYSICIAN,METAL BONDING ASSEMBLER [Primary Care Provider] - Nilda Reddy DO [Physician] - Time of Disposition: 17:17
== END 2024-10-11 17:23 | disposition home or self-care (01) ==
PROVIDERS: Emergency Provider Nurse Practitioner
DX: H61.23 Impacted cerumen, bilateral (principal)
CPT/HCPCS: 69210; 99212; G0463